=== PATIENT | male | born 1960 | race Caucasian/White ===

== ENCOUNTER 2018-06-30 15:51 | Inpatient (IN) ==
[2018-06-30 16:57] LABS: Hemoglobin 11.6 g/dL (12.9-16.9)
[2018-06-30 16:59] LABS: Basophils % 0.9 %; Eosinophils # 0.1 K/mcL (0.0-0.6); Eosinophils % 2.1 %; Hematocrit 33.1 % (37.5-50.1); Immature Platelets 7.3 % (1.1-6.1); Lymphocytes # 0.7 K/mcL (0.6-4.6); Lymphocytes % 21.4 %; Mean Corpuscular Hemoglobin 36.5 pg (28.0-33.3); Mean Corpuscular Volume 104.1 fL (83.0-100.0); Mean Platelet Volume 11.2 fL (9.4-12.4); Monocytes # 0.5 K/mcL (0.0-1.3); Monocytes % 14.4 %; Red Blood Count 3.18 M/mcL (4.19-5.50); Red Cell Distribution Width 14.2 % (11.5-14.5); Segmented Neutrophils % 61.2 %
[2018-06-30 17:00] LABS: Platelet Count 47 K/mcL (140-400)
[2018-06-30 17:04] LABS: INR 1.3; Prothrombin Time 15.1 Seconds (9.4-12.1)
[2018-06-30 17:07] LABS: Activated Partial Thrombo Time 38.2 Seconds (26.0-36.0)
[2018-06-30 17:25] LABS: Acetaminophen < 10 mcg/mL (10-20); Alanine Aminotransferase 20 Units/L (7-52); Albumin 3.2 g/dL (3.5-5.7); Albumin/Globulin Ratio 0.9 (1.1-2.2); Alkaline Phosphatase 187 Units/L (34-104); Aspartate Amino Transferase 77 Units/L (13-39); BUN/Creatinine Ratio 10 (6-26); Blood Urea Nitrogen 6 mg/dL (8-23); Calcium 8.8 mg/dL (8.6-10.3); Carbon Dioxide 24 mEq/L (23-29); Chloride 97 mEq/L (98-107); Ethanol 200 mg/dL (Less than 10); Globulin 3.6 g/dL (2.4-3.5); Glucose 71 mg/dL (70-105); Osmolality,Calculated 268 (280-300); Salicylate < 2.5 mg/dL (15.0-30.0); Sodium 131 mEq/L (136-145); Total Protein 6.8 g/dL (6.4-8.9); eGFR For Non-African Americans > 60 (> 60)
[2018-06-30 17:28] LABS: Platelet Estimate Decreased (Normal)
--- NOTE | 2018-06-30 17:39 | Emergency Department Note ---
Disposition Clinical Impression: Fall, Multiple contusions Disposition: Still a Patient Referrals: Deshaun Marc MD [Primary Care Provider] - Forms: ED Satisfaction Letter Fall HPI - General Chief Complaint: ED Fall Stated Complaint: fall Time Seen by Provider: 06/30/18 16:00 - History of Present Illness HPI Narrative: Patient is a 58-year-old Janota presents the wrist from a chief complaint of fall. Patient reports that he has prior history of thrombocytopenia and has been having frequent falls lately. He has fallen 3 times including a fall today where he fell in the yard and was unable to get up on his own. Patient has had multiple episodes of bruising spontaneously and was recently transferred to [facility] after he had had a fall. At that time the patient required platelet transfusion. Family reports the patient has also been having visual elucidations at home. There is concern the patient may not be able to care for himself at home in his current state. Pt Subjective Complaint: fall - Related Data Home Medications Medication Instructions Recorded Confirmed FLUoxetine HCl [PROzac] 10 mg PO DAILY 11/21/16 06/25/18 Atenolol [Tenormin] 25 mg PO DAILY 06/25/18 06/25/18 Fluticasone Propionate Nasal 2 spray IN BID 06/25/18 06/25/18 [Flonase] Loratadine [Claritin] 10 mg PO DAILY 06/25/18 06/25/18 Allergies Allergy/AdvReac Type Severity Reaction Status Date / Time No Known Allergies Allergy Verified 11/21/16 08:59 All systems ED: reviewed and negative except as stated. Fall PMH - Past Medical History Medical history: Reports: cirrhosis, hypertension, liver disease Surgical history: Reports: herniorrhaphy Psychiatric history: Reports: depression - Social History Smoking Status: Never smoker Alcohol use: Reports: heavy, recent Drug use: Reports: marijuana Physical Exam General: Conversant and pleasant interactive and nontoxic. Head: Normocephalic/atraumatic Eyes:PERRLA, EOMI, no conjunctivitis Nares: Without d/c. Ears: No erythema or d/c noted. Oralpharnyx: P&MMM noted, Neck: Supple, no JVD or HUMAN RESOURCE PROFESSIONAL noted. Cardovascular: regular rate and rhythm without murmur, brisk capillary refill, no peripheral edema. Lungs: Clear to ascultation bilaterally, non-labored Abd: Soft nontender, Non Distended, no guarding, no rebound. : Defered Extremities: moves all extremities equally there are multiple bruises on the extremities including hematoma present on the right forearm and there is also a skin tear present on the right forearm Neuro: AOx3, no obvious gross neuro deficit Psych: Normal Affect Derm: No rash noted - General General appearance: alert Course Course Narrative: Currently waiting on the imaging studies and the laboratory studies on the patient will be signing her care to the ongoing attending Vital Signs Temperature 98.2 F 06/30/18 15:57 Pulse Rate 68 06/30/18 15:57 Respiratory Rate 18 06/30/18 15:57 Blood Pressure 117/60 06/30/18 15:57 O2 Sat by Pulse Oximetry 94 06/30/18 15:57 Temperature 98.2 F 06/30/18 15:57 Pulse Rate 66 06/30/18 17:50 Respiratory Rate 21 06/30/18 17:50 Blood Pressure 124/61 06/30/18 17:50 O2 Sat by Pulse Oximetry 97 06/30/18 17:50 Oxygen Delivery Oxygen Delivery Room Air Fall - Lab Data Result diagrams: 06/30/18 16:46 06/30/18 16:46 Lab Results 06/30/18 06/30/18 06/30/18 Range/Units 16:46 16:46 16:46 WBC 3.3 L (4.3-11.1) K/mcL RBC 3.18 L (4.19-5.50) M/mcL Hgb 11.6 L (12.9-16.9) g/dL Hct 33.1 L (37.5-50.1) % MCV 104.1 H (83.0-100.0) fL MCH 36.5 H (28.0-33.3) pg MCHC 35.0 (31.6-35.5) g/dL RDW 14.2 (11.5-14.5) % Plt Count 47 L (140-400) K/mcL MPV 11.2 (9.4-12.4) fL Immature Gran % 0.0 (0-4) % Seg Neutrophils % 61.2 % Lymphocytes % 21.4 % Monocytes % 14.4 % Eosinophils % 2.1 % Basophils % 0.9 % Neutrophils # 2.0 (1.6-8.9) K/mcL Lymphocytes # 0.7 (0.6-4.6) K/mcL Monocytes # 0.5 (0.0-1.3) K/mcL Eosinophils # 0.1 (0.0-0.6) K/mcL Basophils # 0.0 (0.0-0.2) K/mcL Platelet Estimate Decreased L (Normal) Immature Plt Fraction 7.3 H (1.1-6.1) % PT 15.1 H (9.4-12.1) Seconds INR 1.3 APTT 38.2 H (26.0-36.0) Seconds Sodium 131 L (136-145) mEq/L Potassium 4.0 (3.5-5.1) mEq/L Chloride 97 L (98-107) mEq/L Carbon Dioxide 24 (23-29) mEq/L BUN 6 L (8-23) mg/dL Creatinine 0.62 L (0.70-1.30) mg/dL Est GFR ( Amer) > 60 (> 60) Est GFR (Non-Af Amer) > 60 (> 60) BUN/Creatinine Ratio 10 (6-26) Glucose 71 (70-105) mg/dL Calculated Osmolality 268 L (280-300) Calcium 8.8 (8.6-10.3) mg/dL Total Bilirubin 4.0 H (0.3-1.0) mg/dL AST 77 H (13-39) Units/L ALT 20 (7-52) Units/L Alkaline Phosphatase 187 H (34-104) Units/L Serum Total Protein 6.8 (6.4-8.9) g/dL Albumin 3.2 L (3.5-5.7) g/dL Globulin 3.6 H (2.4-3.5) g/dL Albumin/Globulin Ratio 0.9 L (1.1-2.2) Salicylates (15.0-30.0) mg/dL Acetaminophen (10-20) mcg/mL Ethyl Alcohol (Less than 10) mg/dL Blood Type Antibody Screen 06/30/18 06/30/18 Range/Units 16:46 16:46 WBC (4.3-11.1) K/mcL RBC (4.19-5.50) M/mcL Hgb (12.9-16.9) g/dL Hct (37.5-50.1) % MCV (83.0-100.0) fL MCH (28.0-33.3) pg MCHC (31.6-35.5) g/dL RDW (11.5-14.5) % Plt Count (140-400) K/mcL MPV (9.4-12.4) fL Immature Gran % (0-4) % Seg Neutrophils % % Lymphocytes % % Monocytes % % Eosinophils % % Basophils % % Neutrophils # (1.6-8.9) K/mcL Lymphocytes # (0.6-4.6) K/mcL Monocytes # (0.0-1.3) K/mcL Eosinophils # (0.0-0.6) K/mcL Basophils # (0.0-0.2) K/mcL Platelet Estimate (Normal) Immature Plt Fraction (1.1-6.1) % PT (9.4-12.1) Seconds INR APTT (26.0-36.0) Seconds Sodium (136-145) mEq/L Potassium (3.5-5.1) mEq/L Chloride (98-107) mEq/L Carbon Dioxide (23-29) mEq/L BUN (8-23) mg/dL Creatinine (0.70-1.30) mg/dL Est GFR ( Amer) (> 60) Est GFR (Non-Af Amer) (> 60) BUN/Creatinine Ratio (6-26) Glucose (70-105) mg/dL Calculated Osmolality (280-300) Calcium (8.6-10.3) mg/dL Total Bilirubin (0.3-1.0) mg/dL AST (13-39) Units/L ALT (7-52) Units/L Alkaline Phosphatase (34-104) Units/L Serum Total Protein (6.4-8.9) g/dL Albumin (3.5-5.7) g/dL Globulin (2.4-3.5) g/dL Albumin/Globulin Ratio (1.1-2.2) Salicylates < 2.5 L (15.0-30.0) mg/dL Acetaminophen < 10 L (10-20) mcg/mL Ethyl Alcohol 200 H (Less than 10) mg/dL Blood Type A NEGATIVE Antibody Screen NEGATIVE
--- NOTE | 2018-06-30 18:07 | Emergency Department Note ---
Disposition Clinical Impression: Multiple contusions, Alcohol abuse, Thrombocytopenia Fall Qualifiers: Encounter type: initial encounter Qualified Code(s): W19.XXXA - Unspecified fall, initial encounter Disposition: Admitted As Inpatient Condition: Fair Referrals: Deshaun Marc MD [Primary Care Provider] - Forms: ED Satisfaction Letter Time of Disposition: 18:32 General Adult HPI - General Chief complaint: ED Fall Stated complaint: fall Time Seen by Provider: 06/30/18 16:00 - History of Present Illness Pain Scale: 5 - Related Data Home Medications Medication Instructions Recorded Confirmed FLUoxetine HCl [PROzac] 10 mg PO DAILY 11/21/16 06/25/18 Atenolol [Tenormin] 25 mg PO DAILY 06/25/18 06/25/18 Fluticasone Propionate Nasal 2 spray IN BID 06/25/18 06/25/18 [Flonase] Loratadine [Claritin] 10 mg PO DAILY 06/25/18 06/25/18 Allergies Allergy/AdvReac Type Severity Reaction Status Date / Time No Known Allergies Allergy Verified 11/21/16 08:59 Past Medical History - Past Medical History Medical history: Reports: cirrhosis, hypertension, liver disease Surgical history: Reports: herniorrhaphy Psychiatric history: Reports: depression - Social History Smoking Status: Never smoker Smokeless Tobacco Status: No Alcohol use: Reports: heavy, recent Drug use: Reports: marijuana Physical Exam - General General appearance: alert Course Vital Signs Temperature 98.2 F 06/30/18 15:57 Pulse Rate 68 06/30/18 15:57 Respiratory Rate 18 06/30/18 15:57 Blood Pressure 117/60 06/30/18 15:57 O2 Sat by Pulse Oximetry 94 06/30/18 15:57 Temperature 98.2 F 06/30/18 15:57 Pulse Rate 66 06/30/18 17:50 Respiratory Rate 21 06/30/18 17:50 Blood Pressure 124/61 06/30/18 17:50 O2 Sat by Pulse Oximetry 97 06/30/18 17:50 Oxygen Delivery Oxygen Delivery Room Air Medical Decision Making - Lab Data Result diagrams: 06/30/18 16:46 06/30/18 16:46 Lab Results 06/30/18 06/30/18 06/30/18 Range/Units 16:46 16:46 16:46 WBC 3.3 L (4.3-11.1) K/mcL RBC 3.18 L (4.19-5.50) M/mcL Hgb 11.6 L (12.9-16.9) g/dL Hct 33.1 L (37.5-50.1) % MCV 104.1 H (83.0-100.0) fL MCH 36.5 H (28.0-33.3) pg MCHC 35.0 (31.6-35.5) g/dL RDW 14.2 (11.5-14.5) % Plt Count 47 L (140-400) K/mcL MPV 11.2 (9.4-12.4) fL Immature Gran % 0.0 (0-4) % Seg Neutrophils % 61.2 % Lymphocytes % 21.4 % Monocytes % 14.4 % Eosinophils % 2.1 % Basophils % 0.9 % Neutrophils # 2.0 (1.6-8.9) K/mcL Lymphocytes # 0.7 (0.6-4.6) K/mcL Monocytes # 0.5 (0.0-1.3) K/mcL Eosinophils # 0.1 (0.0-0.6) K/mcL Basophils # 0.0 (0.0-0.2) K/mcL Platelet Estimate Decreased L (Normal) Immature Plt Fraction 7.3 H (1.1-6.1) % PT 15.1 H (9.4-12.1) Seconds INR 1.3 APTT 38.2 H (26.0-36.0) Seconds Sodium 131 L (136-145) mEq/L Potassium 4.0 (3.5-5.1) mEq/L Chloride 97 L (98-107) mEq/L Carbon Dioxide 24 (23-29) mEq/L BUN 6 L (8-23) mg/dL Creatinine 0.62 L (0.70-1.30) mg/dL Est GFR ( Amer) > 60 (> 60) Est GFR (Non-Af Amer) > 60 (> 60) BUN/Creatinine Ratio 10 (6-26) Glucose 71 (70-105) mg/dL Calculated Osmolality 268 L (280-300) Calcium 8.8 (8.6-10.3) mg/dL Total Bilirubin 4.0 H (0.3-1.0) mg/dL AST 77 H (13-39) Units/L ALT 20 (7-52) Units/L Alkaline Phosphatase 187 H (34-104) Units/L Serum Total Protein 6.8 (6.4-8.9) g/dL Albumin 3.2 L (3.5-5.7) g/dL Globulin 3.6 H (2.4-3.5) g/dL Albumin/Globulin Ratio 0.9 L (1.1-2.2) Salicylates (15.0-30.0) mg/dL Acetaminophen (10-20) mcg/mL Ethyl Alcohol (Less than 10) mg/dL Blood Type Antibody Screen 06/30/18 06/30/18 Range/Units 16:46 16:46 WBC (4.3-11.1) K/mcL RBC (4.19-5.50) M/mcL Hgb (12.9-16.9) g/dL Hct (37.5-50.1) % MCV (83.0-100.0) fL MCH (28.0-33.3) pg MCHC (31.6-35.5) g/dL RDW (11.5-14.5) % Plt Count (140-400) K/mcL MPV (9.4-12.4) fL Immature Gran % (0-4) % Seg Neutrophils % % Lymphocytes % % Monocytes % % Eosinophils % % Basophils % % Neutrophils # (1.6-8.9) K/mcL Lymphocytes # (0.6-4.6) K/mcL Monocytes # (0.0-1.3) K/mcL Eosinophils # (0.0-0.6) K/mcL Basophils # (0.0-0.2) K/mcL Platelet Estimate (Normal) Immature Plt Fraction (1.1-6.1) % PT (9.4-12.1) Seconds INR APTT (26.0-36.0) Seconds Sodium (136-145) mEq/L Potassium (3.5-5.1) mEq/L Chloride (98-107) mEq/L Carbon Dioxide (23-29) mEq/L BUN (8-23) mg/dL Creatinine (0.70-1.30) mg/dL Est GFR ( Amer) (> 60) Est GFR (Non-Af Amer) (> 60) BUN/Creatinine Ratio (6-26) Glucose (70-105) mg/dL Calculated Osmolality (280-300) Calcium (8.6-10.3) mg/dL Total Bilirubin (0.3-1.0) mg/dL AST (13-39) Units/L ALT (7-52) Units/L Alkaline Phosphatase (34-104) Units/L Serum Total Protein (6.4-8.9) g/dL Albumin (3.5-5.7) g/dL Globulin (2.4-3.5) g/dL Albumin/Globulin Ratio (1.1-2.2) Salicylates < 2.5 L (15.0-30.0) mg/dL Acetaminophen < 10 L (10-20) mcg/mL Ethyl Alcohol 200 H (Less than 10) mg/dL Blood Type A NEGATIVE Antibody Screen NEGATIVE Attestation Statement - Attestation Attestation: Care of patient assumed from Dr. Nichols at 18:00 pending UA and UDS. patient with a h/o ETOH abuse and falls. Labs and transcribed report of imaging studies reviewed by me. 18:32: The patient appears in no acute distress on exam. imaging services director has evaluated the patient and recommended admission because he cannot take care of himself at home. The patient has been experiencing hallucinations. This could be organic versus substance abuse induced. I will allow the admitting team to determine if they want to process a mental health consultation but this could not be accomplished at the time of admission due to his serum alcohol level of 200 mg/dL
[2018-06-30 19:05] LABS: Bilirubin,Urine Negative (Negative); Blood,Urine Negative (Negative); Clarity,Urine Cloudy (Clear); Color,Urine Yellow (Yellow); Glucose,Urine (UA) Normal (Normal); Ketones,Urine Trace mg/dL (Negative); Leukocyte Esterase,Urine Negative (Negative); Nitrite,Urine Negative (Negative); PH,Urine 6.5 pH Units (5.0-8.0); Protein,Urine Negative (Neg-Trace); Specific Gravity,Urine 1.011 (1.010-1.025); Urobilinogen,Urine Normal (Normal)
[2018-06-30 19:09] LABS: Bacteria,Urine None Seen per hpf (None-Few); Hyaline Casts,Urine None Seen per lpf (None-Few); RBC,Urine 0-3 per hpf (0-3); Squamous Epithelial Cell,Urine Few per lpf (None-Few); WBC,Urine 0-3 per hpf (0-3)
[2018-06-30 19:21] LABS: Amphetamine Screen,Urine Negative ng/mL (Cutoff=1000); Barbiturate Screen,Urine Negative ng/mL (Cutoff=200); Benzodiazepines Screen,Urine Negative ng/mL (Cutoff=200); Cannabinoid Screen,Urine Positive ng/mL (Cutoff = 50); Cocaine Screen,Urine Negative ng/mL (Cutoff= 300); Opiate Screen,Urine Negative ng/mL (Cutoff=300); Phencyclidine Screen,Urine Negative ng/mL (Cutoff=25)
[2018-06-30 19:35] LABS: Calcium Oxalate Crystals,Urine Present
[2018-06-30] MEDS ORDERED: Naloxone 0.4 MG/ML INJ IVP PRN (19:54)
--- NOTE | 2018-06-30 20:13 | Internal Med History&Physical ---
Date of Encounter: 07/01/18 Time of Encounter: 20:13 Internal Medicine - H&P: HPI Chief complaint: Fall History of present illness: Mr. Mathews is a 58 year old male with a past medical history of alcohol use, liver cirrhosis and depression who presents to the ED with complaints of fall. Of note patient was recently seen on June 25 for similar presentation and was subsequently transferred to [facility] for further evaluation of head trauma secondary to fall at the time in the setting of thrombocytopenia. Patient states he was subsequently discharged the following day after CAT scan revealed no evidence of intracranial hemorrhage. Patient was also given a platelet transfusion and also obtained a carotid ultrasound which his brother at bedside states showed greater than 75% stenosis. Patient presents today again after 3 episodes of fall one of which she states was mechanical; the second 2 he believes he lost consciousness. Patient has been reporting increased frequency of falls, memory impairment and visual hallucinations. Patient does drink heavily and has been doing so for the past 39 years. He states he drinks about 12 beers a day. His last drink was around 10 AM after having a 6 pack patient states that earlier this morning he slipped as he was walking out to his porch. He then reports 2 other episodes of falls associated loss of consciousness in which she woke up and states that he probably blacked out. Patient was brought into the ED by his brother not only due to his falls but evidence of a large bruise on his right forearm. X-ray shows a prominent forearm hematoma. Patient again found to be thrombocytopenic with a platelet count of 47. Remainder of imaging workup shows no other evidence of bleed. Patient's brother states that he has been having visualizations including swatting at flies and seeing things that are not there. Denies any fever, chills, chest pain, shortness of breath. Does endorse to remittent episodes of diarrhea. No reports of melena or hematochezia. On arrival patient was found to be afebrile, normotensive satting at 96% on room air. Labs notable for leukopenia which appears to be chronic, th rombocytopenia, mild hyponatremia and a total bilirubin of 4.0. INR was 1.3. Alcohol level noted to be over 200. Toxicology also notable for marijuana. Patient does not endorse occasional marijuana use. CT scan of the head showed no acute intracranial abnormality and chest x-ray was also normal. Past Med Surg Social Fam HX - Past Medical History Medical history: cirrhosis, hypertension, liver disease Additional medical history: alcoholic cirrhosis Psychiatric history: depression - Past Surgical History Surgical History: herniorrhaphy Additional surgical history: b/l inguinal hernia repairs. - Social History Smoking Status: Never smoker Smokeless Tobacco Status: No Alcohol use: heavy, recent Drug use: marijuana - Family History Mother Adopted: [place]: Angelica Age: 85 Family Member Ethnicity: Non- Living Status: Still Living Hx Family Cancer: Yes - Additional Family History Additional family history: Family history of coronary artery disease. Internal Medicine - H&P: Meds FLUoxetine HCl [PROzac] 10 mg PO DAILY 11/21/16 [History] Atenolol [Tenormin] 25 mg PO DAILY 06/25/18 [History] Fluticasone Propionate Nasal [Flonase] 2 spray IN BID 06/25/18 [History] Loratadine [Claritin] 10 mg PO DAILY 06/25/18 [History] HYDROcodone/Acet 5/325 mg [[place] 5-325 mg] 1 tab PO 1-3XD PRN 06/30/18 [History] Naltrexone HCl 25 mg PO DAILY 07/01/18 [History] Allergy/AdvReac Type Severity Reaction Status Date / Time No Known Allergies Allergy Verified 11/21/16 08:59 All Systems PM: A 10-system review of systems was performed and is negative for pertinent findings except as documented above in the HPI. - Constitutional Constitutional: no chills, no fever(s), no night sweats - EENT Eyes: no change in vision, no discharge, no pain, no photophobia Ears: no ear discharge, no ear pain, no tinnitus Nose, mouth and throat: no dysphagia, no nasal discharge, no neck pain, no sore throat - Cardiovascular Cardiovascular ROS IM: no chest pain, no diaphoresis, no dyspnea, no lightheadedness, no palpitations, no syncope - Respiratory Respiratory: no cough, no dyspnea, no wheezing, no excessive phlegm production - Gastrointestinal Gastrointestinal: no abdominal pain, no diarrhea, no hematemesis, no hematochezia, no melena, no nausea, no vomiting - Musculoskeletal Musculoskeletal ROS IM: no numbness, no tingling - Integumentary Integumentary IM: no rash, no unusual bruising - Neurological Neurological ROS: no confusion, no convulsions, no focal weakness, no numbness, no tingling, no tremor(s) - Hematologic/Lymphatic Hematologic/Lymphatic: no easy bruising - Constitutional Vitals: Temp Pulse Resp BP Pulse Ox 98.2 F 72 20 138/63 96 06/30/18 15:57 06/30/18 20:04 06/30/18 20:04 06/30/18 20:04 06/30/18 20:04 Exam: General: Alert and oriented 3 Skin: Large regions of ecchymosis on the left forearm. HEENT:EOM, pupils equal, round and reactive. Mild scleral icterus Cardiovascular:Normal S1 & S2, no rubs, murmurs or gallops. No JVD. Pulse regular. Lungs:Normal breath sounds, no wheezes or crackles. Abdomen:Soft, non-tender, no rigidity. Extremities: Prominent right mid forearm mass noted. Pulses intact. Neurological:Normal cognition and motor skills. Mild upper extremity tremors. Muscle strength 4 out of 5 in the lower extremities bilaterally. Pulses:Carotid and radial pulses normal +2. Rest of the physical exam is non contributory Internal Med - H&P Results - Labs CBC & Chem 7: 07/01/18 07:01 07/01/18 07:01 Labs: Short CBC 06/30/18 Range/Units 16:46 WBC 3.3 L (4.3-11.1) K/mcL Hgb 11.6 L (12.9-16.9) g/dL Hct 33.1 L (37.5-50.1) % Plt Count 47 L (140-400) K/mcL Neutrophils # 2.0 (1.6-8.9) K/mcL BMP 06/30/18 16:46 Sodium 131 L Potassium 4.0 Chloride 97 L Carbon Dioxide 24 BUN 6 L Creatinine 0.62 L Glucose 71 Calcium 8.8 Liver Function 06/30/18 Range/Units 16:46 Total Bilirubin 4.0 H (0.3-1.0) mg/dL AST 77 H (13-39) Units/L ALT 20 (7-52) Units/L Alkaline Phosphatase 187 H (34-104) Units/L Albumin 3.2 L (3.5-5.7) g/dL Urine 06/30/18 Range/Units 18:50 Urine Color Yellow (Yellow) Urine Clarity Cloudy A (Clear) Urine pH 6.5 (5.0-8.0) pH Units Ur Specific [place] 1.011 (1.010-1.025) Urine Protein Negative (Neg-Trace) mg/dL Urine Glucose (UA) Normal (Normal) mg/dL - Impressions ITS Impressions Cervical Spine CT 06/30/18 16:13 IMPRESSION: No acute intracranial abnormality. No evidence acute fracture or traumatic malalignment of the cervical spine. D/ / Maximilian Zheng / Maximilian Zheng Interpreting Provider: Maximilian Zheng Chest X-Ray 06/30/18 16:13 IMPRESSION: No evidence for acute cardiopulmonary process. Previously noted left lateral 4th and 5th rib fractures on prior exam 06/25/2018 are not as well demonstrated currently but appear grossly stable in alignment. D/ / 06/30/2018 16:43:22 Erasto Matthews MD / cathy Interpreting Provider: Erasto Matthews MD Head CT 06/30/18 16:13 IMPRESSION: No acute intracranial abnormality. No evidence acute fracture or traumatic malalignment of the cervical spine. D/ / Maximilian Zheng / Maximilian Zheng Interpreting Provider: Maximilian Zheng Elbow X-Ray 06/30/18 16:14 IMPRESSION: Prominent soft tissue density dorsum of the proximal right forearm presumably reflecting hematoma/contusion. Probable old healed radial head fracture. Correlate with clinical history. Acute radial head fracture is a consideration, however the absence of joint effusion makes this unlikely. Peripheral vascular disease. Follow-up imaging recommended if pain persists or worsens following conservative management. D/ / Romeo Ogden / Romeo Ogden Interpreting Provider: Romeo Ogden - Assessment and Plan (1) Alcohol abuse Current Visit: Yes Status: Acute Assessment and plan: History of chronic alcohol abuse reporting drinking on average a 12 pack of beer daily for the past 39 years. Patient has a history of liver cirrhosis likely secondary to alcohol use. Patient states he has been counseled on alcohol cessation multiple times. Does not report any history of alcohol withdrawal seizures. Does report poor appetite. -Fluid support including banana bag 2 -Check electrolytes and replete as needed -CIWA protocol with Ativan as needed -volunteer services coordinator consult (2) Traumatic hematoma of right forearm Current Visit: Yes Status: Acute Qualifiers: (3) Fall Current Visit: Yes Status: Acute Assessment and plan: Patient presents with history of increased frequency of falls with reported history of syncopal episodes, 2 of which occurred today in the setting of alcohol abuse. Patient was evaluated at [facility] on June 25 for the same. Patient's brother states that he got a carotid ultrasound showing greater than 75% stenosis in one of his carotid arteries. No reports that an echo was obtained. No reports of chest pain, palpitations or presyncopal symptoms prior to any of these episodes. There does seem to be reports of orthostatic hypotension. No focal deficits appreciated. Neurologically intact. CT scan of the head was unremarkable. -Continue fluids -Telemetry -Check orthostatics -Patient likely obtained echocardiogram workup at [facility]. Obtain record s from [facility] including reported carotid ultrasound. -We will obtain MRI Qualifiers: Encounter type: initial encounter Qualified Code(s): W19.XXXA - Unspecified fall, initial encounter (4) Thrombocytopenia Current Visit: Yes Status: Acute Assessment and plan: Thrombocytopenia with a platelet count of 47. Last platelet count on June 25 was 40. Patient reports receiving a platelet transfusion at [facility] earlier this month. Likely secondary to liver cirrhosis. Patient does have evidence of hematoma on the right forearm. We will monitor now for any further evidence of bleed and transfuse as needed. (5) Multiple contusions Current Visit: Yes Status: Acute (6) Forearm abrasion Current Visit: No Status: Acute Qualifiers: Encounter type: initial encounter Laterality: left Qualified Code(s): S50.812A - Abrasion of left forearm, initial encounter (7) Hyponatremia Current Visit: Yes Status: Acute Assessment and plan: Mild hyponatremia 131. Likely secondary to beer per morenita in the setting of chronic alcohol use and poor by mouth appetite. We will continue with fluids and monitor. (8) DVT prophylaxis Current Visit: Yes Status: Acute Assessment and plan: Pneumatic compression devices (9) Hyperbilirubinemia Current Visit: Yes Status: Acute Assessment and plan: Hyperbilirubinemia in the setting of liver cirrhosis. Amylase, lipase normal. Follow-up GI recommendations. - Time Spent With Patient Total time spent is greater than 50% in coordination of care (as documented) at patient's floor/unit and/or counseling patient:
[2018-06-30 20:40] LABS: Amylase 29 Units/L (29-103); Creatine Kinase 401 Units/L (30-223); Lipase 12 Units/L (11-82)
[2018-06-30 20:52] LABS: Thyroid Stimulating Hormone 3.782 mcIU/mL (0.340-5.600)
[2018-06-30] MEDS: Fluticasone Propionate Nasal 50 MCG/SPRAY BOTTLE NS SCH (23:49)
[2018-07-01] MEDS: FLUoxetine HCl 10 MG CAPSULE PO SCH (07:51)
[2018-07-01] MEDS: Loratadine 10 MG TABLET PO SCH (07:51)
[2018-07-01] MEDS: *HR* LORazepam 2 MG/ML VIAL IVP PRN ×3 (07:51→10:47)
[2018-07-01 08:04] LABS: INR 1.3; Prothrombin Time 14.2 Seconds (9.4-12.1)
[2018-07-01 08:06] LABS: Activated Partial Thrombo Time 35.8 Seconds (26.0-36.0)
[2018-07-01 08:07] LABS: Basophils % 0.5 %; Eosinophils % 0.5 %; Hematocrit 35.6 % (37.5-50.1); Hemoglobin 12.3 g/dL (12.9-16.9); Immature Platelets 8.2 % (1.1-6.1); Lymphocytes # 0.7 K/mcL (0.6-4.6); Lymphocytes % 17.4 %; Mean Corpuscular HGB Conc 34.6 g/dL (31.6-35.5); Mean Corpuscular Hemoglobin 35.9 pg (28.0-33.3); Mean Corpuscular Volume 103.8 fL (83.0-100.0); Mean Platelet Volume 11.3 fL (9.4-12.4); Monocytes # 0.5 K/mcL (0.0-1.3); Monocytes % 12.3 %; Neutrophils # 2.8 K/mcL (1.6-8.9); Red Blood Count 3.43 M/mcL (4.19-5.50); Segmented Neutrophils % 69.3 %
[2018-07-01 08:18] LABS: Platelet Count 56 K/mcL (140-400)
[2018-07-01 08:28] LABS: Alanine Aminotransferase 24 Units/L (7-52); Albumin 3.4 g/dL (3.5-5.7); Albumin/Globulin Ratio 0.9 (1.1-2.2); Alkaline Phosphatase 203 Units/L (34-104); Aspartate Amino Transferase 80 Units/L (13-39); BUN/Creatinine Ratio 12 (6-26); Bilirubin,Total 4.7 mg/dL (0.3-1.0); Blood Urea Nitrogen 8 mg/dL (8-23); Carbon Dioxide 22 mEq/L (23-29); Chloride 99 mEq/L (98-107); Globulin 3.9 g/dL (2.4-3.5); Glucose 81 mg/dL (70-105); Magnesium 1.9 mg/dL (1.6-2.6); Osmolality,Calculated 279 (280-300); Phosphorous 3.3 mg/dL (2.7-4.5); Potassium 3.9 mEq/L (3.5-5.1); Sodium 136 mEq/L (136-145); Total Protein 7.3 g/dL (6.4-8.9); eGFR For Non-African Americans > 60 (> 60)
--- NOTE | 2018-07-01 09:01 | AcuteCare Surgery Consult Note ---
<Juliann Dc N - Last Filed: 07/01/18 08:58> Date of Encounter: 07/01/18 Time of Encounter: 06:50 Assessment and Plan (1) Fall Current Visit: Yes Status: Acute Fall with x-ray imaging findings of soft tissue density of the proximal right forearm. On examination patient has notable swelling of the right forearm, but sensation of the distal extremity is intact. He has full range of motion of the wrist and fingers. Pulses are intact and there is good capillary refill. Soft tissue swelling may represent a contusion versus hematoma however surgical intervention at this time is not warranted. Recommend elevation of the right upper extremity and using an Russell wrap to dress the area. At this time acute care surgery will sign off, please reconsult with any questions. 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 On presentation platelet count was 47. No surgical intervention warranted at this time, however patient would be high risk for bleeding if he were to require surgery. History of Present Illness Consult date: 07/01/18 History of present illness: Patient is a 58-year-old male with a past medical history of chronic alcoholism, liver cirrhosis, grade 1 esophageal varices, and thrombocytopenia who presented to the emergency department today after several multiple falls. Patient states that he was walking down steps when he believes that he fell in lost consciousness and cannot recall the subsequent events. He complains of hitting his head and his right arm. Patient was reportedly inebriated on presentation to the emergency department which was confirmed by an ethanol level of 200. On presentation imaging studies including head and C-spine CT, chest x-ray, and elbow x-ray were obtained. Imaging was negative for acute fractures or intracranial bleeds, the right elbow x-rays revealed a soft tissue density of the proximal right forearm presumably reflecting hematoma versus contusion and an incidental finding of an old healed radial head fracture. Acute care surgery consultation was placed to evaluate for possible traumatic hematoma of the right forearm. This morning the patient is resting comfortably in bed, his right arm was wrapped in Kerlix. On examination there is notable swelling of the right forearm, however patient has adequate sensation of all of his fingers, distal pulses are present, capillary refill is normal, and range of motion of his wrist and fingers is intact. Past Med Surg Social Fam HX - Past Medical History Medical history: cirrhosis, hypertension, liver disease Additional medical history: alcoholic cirrhosis Psychiatric history: depression - Past Surgical History Surgical History: herniorrhaphy Additional surgical history: b/l inguinal hernia repairs. - Social History Smoking Status: Never smoker Smokeless Tobacco Status: No Alcohol use: heavy, recent Drug use: marijuana - Family History Mother Adopted: [place]: Angelica Age: 85 Family Member Ethnicity: Non- Living Status: Still Living Hx Family Cancer: Yes Medications and Allergies FLUoxetine HCl [PROzac] 10 mg PO DAILY 11/21/16 [History] Atenolol [Tenormin] 25 mg PO DAILY 06/25/18 [History] Fluticasone Propionate Nasal [Flonase] 2 spray IN BID 06/25/18 [History] Loratadine [Claritin] 10 mg PO DAILY 06/25/18 [History] HYDROcodone/Acet 5/325 mg [Underwood 5-325 mg] 1 tab PO 1-3XD PRN 06/30/18 [History] Naltrexone HCl 25 mg PO DAILY 07/01/18 [History] Allergy/AdvReac Type Severity Reaction Status Date / Time No Known Allergies Allergy Verified 11/21/16 08:59 Review of Systems All systems PM: The remainder of the systems were reviewed and are negative - Constitutional frequent falls, headache(s) - Cardiovascular no chest pain - Respiratory no dyspnea - Gastrointestinal no abdominal pain, no diarrhea, no hematemesis, no vomiting - Musculoskeletal abnormal gait, muscle weakness - Integumentary swelling - Neurological frequent falls, headache(s), memory loss - Hematologic/Lymphatic easy bruising General Surgery Exam Initial Vital Signs Temp Pulse Resp BP Pulse Ox 98.2 F 68 18 117/60 94 06/30/18 15:57 06/30/18 15:57 06/30/18 15:57 06/30/18 15:57 06/30/18 15:57 - General physical appearance no distress - Eyes PERRL, normal ocular movement - ENT normal pinna, normal nares - Neck trachea midline, no venous distension - Respiratory normal expansion, normal respiratory effort, clear to auscultation - Cardiovascular Cardiovascular exam: Present: RRR. Absent: murmurs - Abdomen Abdomen general surgery: Present: soft, non tender. Absent: guarding, rigid - Integumentary Integumentary general surgery: Present: other (Ecchymosis present on extremities, there is swelling at the mid right forearm on the right that is mildly tender to palpation. Pulses intact in the right upper extremity with good capillary refill. He has range of motion of his wrist and all fingers. Sensation intact.) - Neurologic Present: CN 2-12 grossly intact, normal sensation - Musculoskeletal Present: normal gait, normal posture - Psychiatric Psychiatric general surgery: Present: A&Ox3, appropriate Exam Initial Vital Signs Temp Pulse Resp BP Pulse Ox 98.2 F 68 18 117/60 94 06/30/18 15:57 06/30/18 15:57 06/30/18 15:57 06/30/18 15:57 06/30/18 15:57 Results - Labs 07/01/18 07:01 07/01/18 07:01 Abnormal lab results WBC 4.0 K/mcL (4.3-11.1) L 07/01/18 07:01 RBC 3.43 M/mcL (4.19-5.50) L 07/01/18 07:01 Hgb 12.3 g/dL (12.9-16.9) L 07/01/18 07:01 Hct 35.6 % (37.5-50.1) L 07/01/18 07:01 MCV 103.8 fL (83.0-100.0) H 07/01/18 07:01 MCH 35.9 pg (28.0-33.3) H 07/01/18 07:01 Plt Count 56 K/mcL (140-400) L 07/01/18 07:01 Decreased (Normal) L 06/30/18 16:46 Immature Plt Fraction 8.2 % (1.1-6.1) H 07/01/18 07:01 PT 14.2 Seconds (9.4-12.1) H 07/01/18 07:01 APTT 38.2 Seconds (26.0-36.0) H 06/30/18 16:46 Sodium 131 mEq/L (136-145) L 06/30/18 16:46 Chloride 97 mEq/L (98-107) L 06/30/18 16:46 Carbon Dioxide 22 mEq/L (23-29) L 07/01/18 07:01 BUN 6 mg/dL (8-23) L 06/30/18 16:46 0.65 mg/dL (0.70-1.30) L 07/01/18 07:01 279 (280-300) L 07/01/18 07:01 4.7 mg/dL (0.3-1.0) H 07/01/18 07:01 AST 80 Units/L (13-39) H 07/01/18 07:01 203 Units/L (34-104) H 07/01/18 07:01 401 Units/L (30-223) H 06/30/18 16:46 3.4 g/dL (3.5-5.7) L 07/01/18 07:01 3.9 g/dL (2.4-3.5) H 07/01/18 07:01 0.9 (1.1-2.2) L 07/01/18 07:01 Cloudy (Clear) A 06/30/18 18:50 Trace mg/dL (Negative) H 06/30/18 18:50 Salicylates < 2.5 mg/dL (15.0-30.0) L 06/30/18 16:46 Acetaminophen < 10 mcg/mL (10-20) L 06/30/18 16:46 U Marijuana (THC) Screen Positive ng/mL (Cutoff = 50) H 06/30/18 18:50 Ethyl Alcohol 200 mg/dL (Less than 10) H 06/30/18 16:46 Diabetes panel 06/30/18 07/01/18 Range/Units 16:46 07:01 Sodium 131 L 136 (136-145) mEq/L Potassium 4.0 3.9 (3.5-5.1) mEq/L Chloride 97 L 99 (98-107) mEq/L Carbon Dioxide 24 22 L (23-29) mEq/L BUN 6 L 8 (8-23) mg/dL Creatinine 0.62 L 0.65 L (0.70-1.30) mg/dL Glucose 71 81 (70-105) mg/dL Calcium 8.8 9.0 (8.6-10.3) mg/dL AST 77 H 80 H (13-39) Units/L ALT 20 24 (7-52) Units/L Alkaline Phosphatase 187 H 203 H (34-104) Units/L Albumin 3.2 L 3.4 L (3.5-5.7) g/dL Thyroid panel 06/30/18 Range/Units 16:46 TSH 3.782 (0.340-5.600) mcIU/mL Calcium panel 06/30/18 07/01/18 Range/Units 16:46 07:01 Calcium 8.8 9.0 (8.6-10.3) mg/dL Phosphorus 3.3 (2.7-4.5) mg/dL Albumin 3.2 L 3.4 L (3.5-5.7) g/dL Pituitary panel 06/30/18 07/01/18 Range/Units 16:46 07:01 Sodium 131 L 136 (136-145) mEq/L Potassium 4.0 3.9 (3.5-5.1) mEq/L Chloride 97 L 99 (98-107) mEq/L Carbon Dioxide 24 22 L (23-29) mEq/L BUN 6 L 8 (8-23) mg/dL Creatinine 0.62 L 0.65 L (0.70-1.30) mg/dL Glucose 71 81 (70-105) mg/dL Calcium 8.8 9.0 (8.6-10.3) mg/dL TSH 3.782 (0.340-5.600) mcIU/mL Adrenal panel 06/30/18 07/01/18 Range/Units 16:46 07:01 Sodium 131 L 136 (136-145) mEq/L Potassium 4.0 3.9 (3.5-5.1) mEq/L Chloride 97 L 99 (98-107) mEq/L Carbon Dioxide 24 22 L (23-29) mEq/L BUN 6 L 8 (8-23) mg/dL Creatinine 0.62 L 0.65 L (0.70-1.30) mg/dL Glucose 71 81 (70-105) mg/dL Calcium 8.8 9.0 (8.6-10.3) mg/dL Total Bilirubin 4.0 H 4.7 H (0.3-1.0) mg/dL AST 77 H 80 H (13-39) Units/L ALT 20 24 (7-52) Units/L Alkaline Phosphatase 187 H 203 H (34-104) Units/L Albumin 3.2 L 3.4 L (3.5-5.7) g/dL All other labs normal. Consult Discharge Plan - Plan Referrals: Deshaun Marc MD [Primary Care Provider] - <JeffYohan Braun - Last Filed: 07/01/18 16:30> Date of Encounter: 07/01/18 Review of Systems All systems PM: The remainder of the systems were reviewed and are negative General Surgery Exam Initial Vital Signs Temp Pulse Resp BP Pulse Ox 98.2 F 68 18 117/60 94 06/30/18 15:57 06/30/18 15:57 06/30/18 15:57 06/30/18 15:57 06/30/18 15:57 Exam Initial Vital Signs Temp Pulse Resp BP Pulse Ox 98.2 F 68 18 117/60 94 06/30/18 15:57 06/30/18 15:57 06/30/18 15:57 06/30/18 15:57 06/30/18 15:57 Results - Labs 07/01/18 07:01 07/01/18 07:01 Abnormal lab results WBC 4.0 K/mcL (4.3-11.1) L 07/01/18 07:01 RBC 3.43 M/mcL (4.19-5.50) L 07/01/18 07:01 Hgb 12.3 g/dL (12.9-16.9) L 07/01/18 07:01 Hct 35.6 % (37.5-50.1) L 07/01/18 07:01 MCV 103.8 fL (83.0-100.0) H 07/01/18 07:01 MCH 35.9 pg (28.0-33.3) H 07/01/18 07:01 Plt Count 56 K/mcL (140-400) L 07/01/18 07:01 Decreased (Normal) L 06/30/18 16:46 Immature Plt Fraction 8.2 % (1.1-6.1) H 07/01/18 07:01 PT 14.2 Seconds (9.4-12.1) H 07/01/18 07:01 APTT 38.2 Seconds (26.0-36.0) H 06/30/18 16:46 Sodium 131 mEq/L (136-145) L 06/30/18 16:46 Chloride 97 mEq/L (98-107) L 06/30/18 16:46 Carbon Dioxide 22 mEq/L (23-29) L 07/01/18 07:01 BUN 6 mg/dL (8-23) L 06/30/18 16:46 0.65 mg/dL (0.70-1.30) L 07/01/18 07:01 279 (280-300) L 07/01/18 07:01 4.7 mg/dL (0.3-1.0) H 07/01/18 07:01 AST 80 Units/L (13-39) H 07/01/18 07:01 203 Units/L (34-104) H 07/01/18 07:01 401 Units/L (30-223) H 06/30/18 16:46 3.4 g/dL (3.5-5.7) L 07/01/18 07:01 3.9 g/dL (2.4-3.5) H 07/01/18 07:01 0.9 (1.1-2.2) L 07/01/18 07:01 Cloudy (Clear) A 06/30/18 18:50 Trace mg/dL (Negative) H 06/30/18 18:50 Salicylates < 2.5 mg/dL (15.0-30.0) L 06/30/18 16:46 Acetaminophen < 10 mcg/mL (10-20) L 06/30/18 16:46 U Marijuana (THC) Screen Positive ng/mL (Cutoff = 50) H 06/30/18 18:50 Ethyl Alcohol 200 mg/dL (Less than 10) H 06/30/18 16:46 Diabetes panel 06/30/18 07/01/18 Range/Units 16:46 07:01 Sodium 131 L 136 (136-145) mEq/L Potassium 4.0 3.9 (3.5-5.1) mEq/L Chloride 97 L 99 (98-107) mEq/L Carbon Dioxide 24 22 L (23-29) mEq/L BUN 6 L 8 (8-23) mg/dL Creatinine 0.62 L 0.65 L (0.70-1.30) mg/dL Glucose 71 81 (70-105) mg/dL Calcium 8.8 9.0 (8.6-10.3) mg/dL AST 77 H 80 H (13-39) Units/L ALT 20 24 (7-52) Units/L Alkaline Phosphatase 187 H 203 H (34-104) Units/L Albumin 3.2 L 3.4 L (3.5-5.7) g/dL Thyroid panel 06/30/18 Range/Units 16:46 TSH 3.782 (0.340-5.600) mcIU/mL Calcium panel 06/30/18 07/01/18 Range/Units 16:46 07:01 Calcium 8.8 9.0 (8.6-10.3) mg/dL Phosphorus 3.3 (2.7-4.5) mg/dL Albumin 3.2 L 3.4 L (3.5-5.7) g/dL Pituitary panel 06/30/18 07/01/18 Range/Units 16:46 07:01 Sodium 131 L 136 (136-145) mEq/L Potassium 4.0 3.9 (3.5-5.1) mEq/L Chloride 97 L 99 (98-107) mEq/L Carbon Dioxide 24 22 L (23-29) mEq/L BUN 6 L 8 (8-23) mg/dL Creatinine 0.62 L 0.65 L (0.70-1.30) mg/dL Glucose 71 81 (70-105) mg/dL Calcium 8.8 9.0 (8.6-10.3) mg/dL TSH 3.782 (0.340-5.600) mcIU/mL Adrenal panel 06/30/18 07/01/18 Range/Units 16:46 07:01 Sodium 131 L 136 (136-145) mEq/L Potassium 4.0 3.9 (3.5-5.1) mEq/L Chloride 97 L 99 (98-107) mEq/L Carbon Dioxide 24 22 L (23-29) mEq/L BUN 6 L 8 (8-23) mg/dL Creatinine 0.62 L 0.65 L (0.70-1.30) mg/dL Glucose 71 81 (70-105) mg/dL Calcium 8.8 9.0 (8.6-10.3) mg/dL Total Bilirubin 4.0 H 4.7 H (0.3-1.0) mg/dL AST 77 H 80 H (13-39) Units/L ALT 20 24 (7-52) Units/L Alkaline Phosphatase 187 H 203 H (34-104) Units/L Albumin 3.2 L 3.4 L (3.5-5.7) g/dL All other labs normal. - Attending Attestation I examined this patient and my medical decision-making was reviewed with the Resident Physician. I agree with the documented findings, disposition and treatment plan as described except to the extent set forth below. I reviewed the above assessment and evaluation with resident and agree with the overall plan. Noted patient's history of a cold abuse, cirrhosis, cytopenia has sustained a fall and subsequently has a hematoma in his right forearm. He has no loss of sensation although he does have some tenderness in the area of the hematoma. No overlying erythema is noted although there is ecchymosis c onsistent with his thrombocytopenia. Agree with recommendation of his any extremity and applying an Russell wrap to help decrease swelling. No surgical intervention is necessary. We will sign off, thank very much.
[2018-07-01] MEDS ORDERED: *HR* LORazepam 2 MG/ML VIAL IVP ONE (09:19)
[2018-07-01] MEDS: Dexmedetomidine HCl 400 MCG/100 ML MLS IVC SCH ×2 (09:48→14:52)
[2018-07-01] MEDS: Fluticasone Propionate Nasal 50 MCG/SPRAY BOTTLE NS SCH ×2 (10:47→23:01)
--- NOTE | 2018-07-01 13:56 | Gastroenterology Consult Note ---
<SyCorby infante Barbara - Last Filed: 07/01/18 13:53> Date of Encounter: 07/01/18 Time of Encounter: 11:40 - Assessment and plan (1) Cirrhosis Current Visit: Yes Status: Acute Assessment and plan: MELD-NA 20, Child-Romeo class B, DF 17.8. Recommend 2-4 BMs daily, use Lactulose PRN. Check AFP and RUQ US to rule out HCC. Lifestyle Changes: 1. Total abstinence from alcohol including social drinking. 2. No smoking. 3. Gradual loss of weight. 4. Drink at least 3 cups of coffee due to its antioxidant effects in the liver, it reduces risk of HCC and advance fibrosis. 5. If needed, use less than 2 g/day of Tylenol (in divided doses). 6. Vaccination for Hep A, B, Pneumococcus if not already received and yearly influenza vaccination by PCP. 7. Avoid NSAIDS as can cause kidney damage. 8. Avoid benzodiazepines and other sedatives such as anti-histamines, narcotics etc. as can cause encephalopathy or confusion. 9. Take a late carbohydrate meal supplement as it reduces glucose production from protein breakdown and thus improves nutrition. 10. In cirrhosis, statins are safe to use and also improve portal hypertension and decrease risk of HCC. 11. Screening: Hepatocellular cancer screening: US of liver and AFP every 6 months Qualifiers: Hepatic cirrhosis type: alcoholic cirrhosis Ascites presence: unspecified Qualified Code(s): K70.30 - Alcoholic cirrhosis of liver without ascites (2) Alcohol abuse Current Visit: Yes Status: Acute Assessment and plan: Avoid all forms of alcohol. (3) Thrombocytopenia Current Visit: Yes Status: Acute Assessment and plan: Secondary to cirrhosis. - Time Spent With Patient Total time spent is greater than 50% in coordination of care (as documented) at patient's floor/unit and/or counseling patient: GI History of Present Illness - Data of Consult Patient: known to practice within the last 3 years Consult date: 07/01/18 Requesting Physician: Edwin Khan - Consult Narrative Reason for consult: Cirrhosis History of present illness: Mr. Mathews is a 58 year old male with PMHx of alcohol abuse, cirrhosis, TCP, esophageal varices, HTN who presented to the ED with complaints of 3 episodes of falling. History obtained from chart review as patient sedated on Precedex. Patient consuming 12-19 beers per day. He has been falling more frequently recently. No reports of melena or hematochezia. We were consulted to evaluate his cirrhosis. Overnight patient started to have tremors, increases anxiety, hallucinations, and combative. He was started on Precedex and transferred to the ICU. Procedures: EGD 06/04/2018 Dr. Augustine: Grade 1 varices, esophageal stenosis. Colonoscopy 09/04/2017 Dr. Augustine: Poor prep 10 mm and 5 mm polyp not removed due to thrombocytopenia, internal hemorrhoids. EGD 09/04/2017 Dr. Augustine: Grade 2 esophageal varices, portal hypertensive gastropathy, esophageal stenosis. EGD 11/21/2016 Dr. Augustine: Grade 3 esophageal varices, esophageal stenosis, small hiatal hernia, gastritis, portal hypertensive gastropathy, large duodenal polyp or varix. NSAIDs: None Anticoagulation: None Past Med Surg Social Fam HX - Past Medical History Medical history: cirrhosis, hypertension, liver disease Additional medical history: alcoholic cirrhosis Psychiatric history: depression - Past Surgical History Surgical History: herniorrhaphy Additional surgical history: b/l inguinal hernia repairs. - Social History Smoking Status: Never smoker Smokeless Tobacco Status: No Alcohol use: heavy, recent Drug use: marijuana - Family History Mother Adopted: [place]: Angelica Age: 85 Family Member Ethnicity: Non- Living Status: Still Living Hx Family Cancer: Yes ROS unobtainable: due to mental status - Constitutional Vitals: Temp Pulse Resp BP Pulse Ox 98.2 F 67 22 141/59 94 07/01/18 06:58 07/01/18 13:00 07/01/18 13:00 07/01/18 13:00 07/01/18 13:00 Exam: Sedated on Precedex - Head Head exam: Present: atraumatic, normocephalic - Eye Eye exam: Present: normal appearance, sclera anicteric - ENT ENT exam: Present: mucous membranes dry - Neck Neck exam general surgery: Present: normal inspection, trachea midline - Respiratory Respiratory exam: Present: CTAB. Absent: rales, rhonchi - Cardiovascular Cardiovascular exam: Present: RRR, +S1, +S2 - GI/Abdominal GI/Abdominal exam: Present: soft, no peritoneal signs. Absent: distended, firm, guarding, tenderness - Rectal Rectal exam: Present: deferred - Extremities Exam Extremities exam: Present: warm - Neurological Exam Neurological exam: Present: no focal deficits Additional comments: eccymosis - Psychiatric Psychiatric exam: Present: normal affect, normal mood - Skin Skin exam: Present: dry, intact, normal color, warm Results - Labs CBC & Chem 7: 07/01/18 07:01 07/01/18 07:01 Labs: Last Result 07/01/18 07/01/18 07:01 07:01 Calcium 9.0 Troponin I < 0.03 Entire Visit 07/01/18 07/01/18 07/01/18 07:01 07:01 07:01 Hgb 12.3 L Hct 35.6 L PT 14.2 H Total Bilirubin 4.7 H AST 80 H ALT 24 - ABG ABG results: PT/INR, D-dimer PT 14.2 Seconds (9.4-12.1) H 07/01/18 07:01 - Impressions Impressions Cervical Spine CT 06/30/18 16:13 IMPRESSION: No acute intracranial abnormality. No evidence acute fracture or traumatic malalignment of the cervical spine. D/ / Maximilian Zheng / Maximilian Zheng Interpreting Provider: Maximilian Zheng Chest X-Ray 06/30/18 16:13 IMPRESSION: No evidence for acute cardiopulmonary process. Previously noted left lateral 4th and 5th rib fractures on prior exam 06/25/2018 are not as well demonstrated currently but appear grossly stable in alignment. D/ / 06/30/2018 16:43:22 Erasto Matthews MD [facility] Interpreting Provider: Erasto Matthews MD Head CT 06/30/18 16:13 IMPRESSION: No acute intracranial abnormality. No evidence acute fracture or traumatic malalignment of the cervical spine. D/ / Maximilian Zheng / Maximilian Zheng Interpreting Provider: Maximilian Zheng Elbow X-Ray 06/30/18 16:14 IMPRESSION: Prominent soft tissue density dorsum of the proximal right forearm presumably reflecting hematoma/contusion. Probable old healed radial head fracture. Correlate with clinical history. Acute radial head fracture is a consideration, however the absence of joint effusion makes this unlikely. Peripheral vascular disease. Follow-up imaging recommended if pain persists or worsens following conservative management. D/ / Romeo Ogden / Romeo Ogden Interpreting Provider: Romeo Ogden Echocardiogram 06/30/18 20:02 Impressions: LVEF 60-65%. Normal LV chamber size, wall thickness and function. Normal right ventricular structure and function. Mild mitral regurgitation. Mild pulmonary hypertension. Estimated RVSP 38 mmHg. Left Ventricular Wall Motion: Rest Echo Findings All wall segments showed normal motion. Findings: Study Quality * Technically adequate exam. ECG Findings * Normal sinus rhythm. Left Ventricle * LVEF 60-65%. * Normal LV chamber size, wall thickness and function. Right Ventricle * Normal right ventricular structure and function. Left Atrium * Mild to moderately dilated left atrium. Right Atrium * Mildly dilated right atrium. Interatrial Septum * Interatrial septum not well evaluated. Aortic Valve * Aortic valve not well visualized. * No aortic regurgitation. * No aortic stenosis. Mitral Valve * Mild mitral annular calcification * Mild mitral regurgitation. * No mitral stenosis. Tricuspid Valve * Normal tricuspid valve structure and function. * Trace tricuspid regurgitation. * Mild pulmonary hypertension. Estimated RVSP 38 mmHg. Pulmonic Valve * Normal pulmonic valve structure and function. * No pulmonic regurgitation. Aorta * Normally sized aortic root. Pericardium * The pericardium appears normal. IVC * Normal IVC dimensions and inspiratory collapse. Pulmonary Artery * Normal visualized portions of the main pulmonary artery. Consult Discharge Plan - Plan Referrals: Deshaun Marc MD [Primary Care Provider] - <Manuelito Augustine - Last Filed: 07/06/18 05:41> Date of Encounter: 07/01/18 - Time Spent With Patient Total time spent is greater than 50% in coordination of care (as documented) at patient's floor/unit and/or counseling patient: GI History of Present Illness - Data of Consult Requesting Physician: Edwin Khan - Consult Narrative History of present illness: Mr. Mathews is a 58 year old male - Constitutional Vitals: Temp Pulse Resp BP Pulse Ox 98.3 F 74 18 155/71 97 07/06/18 03:31 07/06/18 03:31 07/06/18 03:31 07/06/18 03:31 07/06/18 03:31 Results - Labs CBC & Chem 7: 07/05/18 05:59 07/05/18 05:59 - ABG ABG results: PT/INR, D-dimer PT 14.2 Seconds (9.4-12.1) H 07/01/18 07:01 - Attending Attestation I have personally performed a face to face evaluation on this patient. I have reviewed and agree with the care plan. History and Exam by me shows:
[2018-07-01] MEDS ORDERED: Thiamine (B-1) 100 MG, Folic Acid 1 MG, MVI, adult with vitamin K 10 ML in 0.9 % Sodi... IVPB SCH (18:00)
--- NOTE | 2018-07-01 18:30 | Internal Med Progress Note ---
Hospitalist Progress Note - Encounter Date of Encounter: 07/01/18 Time of Encounter: 11:00 - Subjective Interval History: Patient is a 64-year-old male with past medical history Central for alcohol abuse/dependence with liver cirrhosis and mood disorder who presented with fall to be in alcohol withdrawals Patient was placed on a CIWA protocol on admission but was still symptomatic therefore had to be placed on Precedex drip and transferred to the intensive care unit. - Exam Vitals: Temp Pulse Resp BP Pulse Ox 97.5 F L 60 18 142/66 95 07/01/18 15:31 07/01/18 15:31 07/01/18 15:31 07/01/18 17:00 07/01/18 15:31 Exam: Gen.: Nonacute distress, alert and oriented 3 ENT: Mucosal membranes moist Respiratory: Lungs are clear to auscultation bilaterally without any wheezing rhonchi or rales Cardiovascular: Normal S1 and S2 regular rate rhythm no murmurs rubs or gallops Abdomen: Soft, nontender and nondistended with positive bowel sounds Extremities: No lower extremity edema Skin: Normal color - Assessment and Plan (1) Alcohol abuse Current Visit: Yes Status: Acute Assessment and Plan: History of chronic alcohol abuse reporting drinking on average a 12 pack of beer daily for the past 39 years. Patient was placed on a CIWA protocol on admission but was still symptomatic therefore had to be placed on Precedex drip and transferred to the intensive care unit. (2) Fall Current Visit: Yes Status: Acute Assessment and Plan: Suspect secondary to patient's chronic alcohol dependence/abuse After alcohol withdrawals will consult PT/OT for further evaluation (3) Traumatic hematoma of right forearm Current Visit: Yes Status: Acute Assessment and Plan: Large right mid dorsum forearm mass concerning for hematoma. X-ray of the forearm shows prominent soft tissue density presumably reflecting hematoma/contusion. Surgery with recommendations for medical management as no surgical intervention warranted at this time (4) Thrombocytopenia Current Visit: Yes Status: Acute Assessment and Plan: Thrombocytopenia secondary to liver cirrhosis Continue to monitor for active bleeding and also monitor hematoma on right forearm. (5) Hyperbilirubinemia Current Visit: Yes Status: Acute DVT Prophylaxis: SCDs - Time Spent with Patient Total time spent is greater than 50% in coordination of care (as documented) at patient's floor/unit and/or counseling patient: Internal Medicine: Result - Labs CBC & Chem 7: 07/01/18 07:01 07/01/18 07:01 Labs: Short CBC 07/01/18 Range/Units 07:01 WBC 4.0 L (4.3-11.1) K/mcL Hgb 12.3 L (12.9-16.9) g/dL Hct 35.6 L (37.5-50.1) % Plt Count 56 L (140-400) K/mcL Neutrophils # 2.8 (1.6-8.9) K/mcL BMP 07/01/18 07:01 Sodium 136 Potassium 3.9 Chloride 99 Carbon Dioxide 22 L BUN 8 Creatinine 0.65 L Glucose 81 Calcium 9.0 Cardiac Enzymes 07/01/18 Range/Units 07:01 Troponin I < 0.03 (< 0.04) ng/mL Liver Function 07/01/18 Range/Units 07:01 Total Bilirubin 4.7 H (0.3-1.0) mg/dL AST 80 H (13-39) Units/L ALT 24 (7-52) Units/L Alkaline Phosphatase 203 H (34-104) Units/L Albumin 3.4 L (3.5-5.7) g/dL Urine 06/30/18 Range/Units 18:50 Urine Color Yellow (Yellow) Urine Clarity Cloudy A (Clear) Urine pH 6.5 (5.0-8.0) pH Units Ur Specific [place] 1.011 (1.010-1.025) Urine Protein Negative (Neg-Trace) mg/dL Urine Glucose (UA) Normal (Normal) mg/dL - ABG Interpretation ABG results: PT/INR, D-dimer PT 14.2 Seconds (9.4-12.1) H 07/01/18 07:01 - Impressions Impressions Echocardiogram 06/30/18 20:02 Impressions: LVEF 60-65%. Normal LV chamber size, wall thickness and function. Normal right ventricular structure and function. Mild mitral regurgitation. Mild pulmonary hypertension. Estimated RVSP 38 mmHg. Left Ventricular Wall Motion: Rest Echo Findings All wall segments showed normal motion. Findings: Study Quality * Technically adequate exam. ECG Findings * Normal sinus rhythm. Left Ventricle * LVEF 60-65%. * Normal LV chamber size, wall thickness and function. Right Ventricle * Normal right ventricular structure and function. Left Atrium * Mild to moderately dilated left atrium. Right Atrium * Mildly dilated right atrium. Interatrial Septum * Interatrial septum not well evaluated. Aortic Valve * Aortic valve not well visualized. * No aortic regurgitation. * No aortic stenosis. Mitral Valve * Mild mitral annular calcification * Mild mitral regurgitation. * No mitral stenosis. Tricuspid Valve * Normal tricuspid valve structure and function. * Trace tricuspid regurgitation. * Mild pulmonary hypertension. Estimated RVSP 38 mmHg. Pulmonic Valve * Normal pulmonic valve structure and function. * No pulmonic regurgitation. Aorta * Normally sized aortic root. Pericardium * The pericardium appears normal. IVC * Normal IVC dimensions and inspiratory collapse. Pulmonary Artery * Normal visualized portions of the main pulmonary artery. Consult Discharge Plan - Plan Referrals: Deshaun Marc MD [Primary Care Provider] - (2) Fall Qualifiers: Encounter type: initial encounter Qualified Code(s): W19.XXXA - Unspecified fall, initial encounter
[2018-07-02] MEDS: Thiamine (B-1) 100 MG, Folic Acid 1 MG, MVI, adult with vitamin K 10 ML in 0.9 % Sodi... IVPB SCH ×2 (00:06→16:31)
[2018-07-02] MEDS: Loratadine 10 MG TABLET PO SCH (07:39)
[2018-07-02] MEDS: Fluticasone Propionate Nasal 50 MCG/SPRAY BOTTLE NS SCH ×2 (07:39→21:40)
[2018-07-02] MEDS: FLUoxetine HCl 10 MG CAPSULE PO SCH (07:39)
--- NOTE | 2018-07-02 09:46 | Electrocardiograph Report ---
[place] [id number] Test Date: 2018-07-01 Pat Name: Bret Mathews Department: 112 Room: 2N13 Gender: M Devops: JOSE : 1960 Requested By: Akila Blanco Order Number: [id number] Reading MD: Kaiser Weller Measurements Intervals [place] Rate: 72 P: 53 DC: 170 QRS: 39 QRSD: 103 T: 45 QT: 470 QTc: 494 Interpretive Statements SINUS RHYTHM PROLONGED QT INTERVAL Electronically Signed On 07-02-2018 9:44:52 EDT by Kaiser Weller
--- NOTE | 2018-07-02 11:20 | Internal Med Progress Note ---
Hospitalist Progress Note - Encounter Date of Encounter: 07/02/18 Time of Encounter: 11:00 - Subjective Interval History: Patient is a 64-year-old male with past medical history Central for alcohol abuse/dependence with liver cirrhosis and mood disorder who presented with fall to be in alcohol withdrawals Patient was placed on a CIWA protocol on admission but was still symptomatic yesterday therefore had to be placed on Precedex drip and transferred to the intensive care unit. Patient has been subsequently transferred to the progressive unit for continued management of alcohol withdrawal now on CIWA protocol. - Exam Vitals: Temp Pulse Resp BP Pulse Ox 97.6 F 72 18 165/76 100 07/02/18 06:47 07/02/18 07:44 07/02/18 06:47 07/02/18 06:47 07/02/18 06:47 Exam: Gen.: Nonacute distress, alert and oriented ENT: Mucosal membranes moist Respiratory: Lungs are clear to auscultation bilaterally without any wheezing rhonchi or rales Cardiovascular: Normal S1 and S2 regular rate rhythm no murmurs rubs or gallops Abdomen: Soft, nontender and nondistended with positive bowel sounds Extremities: No lower extremity edema Skin: Normal color - Assessment and Plan (1) Alcohol abuse Current Visit: Yes Status: Acute Assessment and Plan: Patient with history of chronic alcohol abuse reporting drinking on average a 12 pack of beer daily for the past 39 years. Patient was placed on a CIWA protocol on admission but was still symptomatic yesterday therefore had to be placed on Precedex drip and transferred to the intensive care unit. Patient has been subsequently transferred to the progressive unit for continued management of alcohol withdrawal now on CIWA protocol. (2) Fall Current Visit: Yes Status: Acute Assessment and Plan: Patient presents with history of increased frequency of falls with reported history of syncopal episodes, 2 of which occurred today in the setting of alcohol abuse. Suspect secondary to patient's chronic alcohol dependence/abuse After alcohol withdrawals will consult PT/OT for further evaluation (3) Traumatic hematoma of right forearm Current Visit: Yes Status: Acute Assessment and Plan: Large right mid dorsum forearm mass concerning for hematoma. X-ray of the forearm shows prominent soft tissue density presumably reflecting hematoma/contusion. Surgery with recommendations for medical management as no surgical intervention warranted at this time (4) Thrombocytopenia Current Visit: Yes Status: Acute Assessment and Plan: Thrombocytopenia secondary to liver cirrhosis Continue to monitor for active bleeding and also monitor hematoma on right forearm. (5) Hyperbilirubinemia Current Visit: Yes Status: Acute Assessment and Plan: Hyperbilirubinemia in the setting of liver cirrhosis. GI consulted and appreciate recommendations DVT Prophylaxis: SCDs - Time Spent with Patient Total time spent is greater than 50% in coordination of care (as documented) at patient's floor/unit and/or counseling patient: Internal Medicine: Result - Labs CBC & Chem 7: 07/02/18 11:42 07/02/18 11:42 - ABG Interpretation ABG results: PT/INR, D-dimer PT 14.2 Seconds (9.4-12.1) H 07/01/18 07:01 - Impressions Impressions Liver Ultrasound 07/01/18 18:00 IMPRESSION: Heterogeneous echotexture throughout the liver, compatible with diffuse hepatocellular disease such as cirrhosis. Cholelithiasis. Mild gallbladder wall thickening, either due to the partially contracted state of the gallbladder or reactive due to the underlying ascites D/ / Dean Alvarez MD / Dean Alvarez MD Interpreting Provider: Dean Alvarez MD Brain MRI 07/02/18 09:45 IMPRESSION: No acute intracranial abnormality. Cerebellar atrophy. No substantial white-matter disease. D/ / Mesfin Ford MD / Mesfin Ford MD Interpreting Provider: Mesfin oFrd MD Consult Discharge Plan - Plan Referrals: Deshaun Marc MD [Primary Care Provider] - (2) Fall Qualifiers: Encounter type: initial encounter Qualified Code(s): W19.XXXA - Unspecified fall, initial encounter
[2018-07-02 12:27] LABS: Basophils % 0.3 %; Immature Granulocytes % 0.3 % (0-4)
[2018-07-02 12:29] LABS: Eosinophils % 0.7 %; Hematocrit 35.5 % (37.5-50.1); Hemoglobin 12.2 g/dL (12.9-16.9); Immature Platelets 6.2 % (1.1-6.1); Lymphocytes # 0.4 K/mcL (0.6-4.6); Lymphocytes % 14.1 %; Mean Corpuscular HGB Conc 34.4 g/dL (31.6-35.5); Mean Corpuscular Hemoglobin 35.8 pg (28.0-33.3); Mean Corpuscular Volume 104.1 fL (83.0-100.0); Mean Platelet Volume 11.3 fL (9.4-12.4); Monocytes # 0.4 K/mcL (0.0-1.3); Monocytes % 12.4 %; Neutrophils # 2.1 K/mcL (1.6-8.9); Red Blood Count 3.41 M/mcL (4.19-5.50); Red Cell Distribution Width 13.7 % (11.5-14.5); Segmented Neutrophils % 72.2 %
[2018-07-02 12:30] LABS: Platelet Count 41 K/mcL (140-400)
[2018-07-02 12:44] LABS: BUN/Creatinine Ratio 20 (6-26); Blood Urea Nitrogen 10 mg/dL (8-23); Calcium 8.5 mg/dL (8.6-10.3); Carbon Dioxide 24 mEq/L (23-29); Chloride 101 mEq/L (98-107); Glucose 76 mg/dL (70-105); Osmolality,Calculated 278 (280-300); Potassium 3.9 mEq/L (3.5-5.1); Sodium 135 mEq/L (136-145); eGFR For Non-African Americans > 60 (> 60)
[2018-07-02] MEDS ORDERED: Acetaminophen 325 MG TABLET PO PRN (23:40)
[2018-07-03] MEDS: Ondansetron 4 MG/2 ML VIAL IVP PRN ×2 (00:43→21:10)
[2018-07-03] MEDS: *HR* LORazepam 2 MG/ML VIAL IVP PRN ×3 (01:09→21:18)
[2018-07-03 03:48] LABS: Basophils % 0.3 %; Hemoglobin 11.7 g/dL (12.9-16.9); Immature Granulocytes % 0.3 % (0-4); Mean Corpuscular Hemoglobin 35.8 pg (28.0-33.3); Red Blood Count 3.27 M/mcL (4.19-5.50)
[2018-07-03 03:50] LABS: Eosinophils % 0.8 %; Hematocrit 33.9 % (37.5-50.1); Lymphocytes # 0.7 K/mcL (0.6-4.6); Mean Corpuscular HGB Conc 34.5 g/dL (31.6-35.5); Mean Corpuscular Volume 103.7 fL (83.0-100.0); Mean Platelet Volume 10.8 fL (9.4-12.4); Monocytes % 15.1 %; Red Cell Distribution Width 13.8 % (11.5-14.5); Segmented Neutrophils % 64.5 %
[2018-07-03 04:01] LABS: Monocytes # 0.5 K/mcL (0.0-1.3); Neutrophils # 2.3 K/mcL (1.6-8.9); Platelet Count 48 K/mcL (140-400)
[2018-07-03 04:11] LABS: BUN/Creatinine Ratio 16 (6-26); Blood Urea Nitrogen 10 mg/dL (8-23); Calcium 7.9 mg/dL (8.6-10.3); Carbon Dioxide 25 mEq/L (23-29); Chloride 103 mEq/L (98-107); Glucose 80 mg/dL (70-105); Osmolality,Calculated 282 (280-300); Potassium 3.5 mEq/L (3.5-5.1); Sodium 137 mEq/L (136-145); eGFR For Non-African Americans > 60 (> 60)
[2018-07-03] MEDS: Thiamine (B-1) 100 MG TABLET PO SCH (07:53)
[2018-07-03] MEDS: Folic Acid 1 MG TABLET PO SCH (07:53)
[2018-07-03] MEDS: Spironolactone 25 MG TABLET PO SCH (07:53)
[2018-07-03] MEDS: Loratadine 10 MG TABLET PO SCH (07:54)
[2018-07-03] MEDS: FLUoxetine HCl 10 MG CAPSULE PO SCH (07:54)
[2018-07-03] MEDS: Fluticasone Propionate Nasal 50 MCG/SPRAY BOTTLE NS SCH ×2 (07:55→21:50)
[2018-07-03] MEDS: Dexmedetomidine HCl 400 MCG/100 ML MLS IVC SCH (15:48)
--- NOTE | 2018-07-03 17:37 | Internal Med Progress Note ---
Hospitalist Progress Note - Encounter Date of Encounter: 07/03/18 Time of Encounter: 11:00 - Subjective Interval History: Patient is a 64-year-old male with past medical history Central for alcohol abuse/dependence with liver cirrhosis and mood disorder who presented with fall to be in alcohol withdrawals Patient was placed on a CIWA protocol on admission but was still symptomatic on 07/01/18 therefore had to be placed on Precedex drip and transferred to the intensive care unit. Patient has been subsequently transferred to the progressive unit on 07/02 for continued management of alcohol withdrawal now on CIWA protocol. Patient this morning now alert and oriented 3 requiring less Ativan on CIWA protocol Due to frequent falls PT/OT was consulted with recommendations for half-way facility placement for strengthening/conditioning; social work faculty member will assist with placement on 07/06/18 - Exam Vitals: Temp Pulse Resp BP Pulse Ox 98.4 F 69 18 143/77 96 07/03/18 16:43 07/03/18 16:43 07/03/18 11:59 07/03/18 16:43 07/03/18 16:43 Exam: Gen.: Nonacute distress, alert and oriented 3 ENT: Mucosal membranes moist Respiratory: Lungs are clear to auscultation bilaterally without any wheezing rhonchi or rales Cardiovascular: Normal S1 and S2 regular rate rhythm no murmurs rubs or gallops Abdomen: Soft, nontender and nondistended with positive bowel sounds Extremities: No lower extremity edema Skin: Normal color - Assessment and Plan (1) Alcohol abuse Current Visit: Yes Status: Acute Assessment and Plan: Patient is a 64-year-old male with past medical history Central for alcohol abuse/dependence with liver cirrhosis and mood disorder who presented with fall to be in alcohol withdrawals Patient was placed on a CIWA protocol on admission but was still symptomatic on 07/01/18 therefore had to be placed on Precedex drip and transferred to the intensive care unit. Patient has been subsequently transferred to the progressive unit on 07/02 for continued management of alcohol withdrawal now on CIWA protocol. Patient this morning now alert and oriented 3 requiring less Ativan on CIWA protocol (2) Fall Current Visit: Yes Status: Acute Assessment and Plan: Patient presents with history of increased frequency of falls with reported history of syncopal episodes, 2 of which occurred today in the setting of al cohol abuse. Suspect secondary to patient's chronic alcohol dependence/abuse Due to frequent falls PT/OT was consulted with recommendations for half-way facility placement for strengthening/conditioning; social work faculty member will assist with placement on 07/06/18 (3) Traumatic hematoma of right forearm Current Visit: Yes Status: Acute Assessment and Plan: Large right mid dorsum forearm mass concerning for hematoma. X-ray of the forearm shows prominent soft tissue density presumably reflecting hematoma/contusion. Surgery with recommendations for medical management as no surgical intervention warranted at this time (4) Thrombocytopenia Current Visit: Yes Status: Acute Assessment and Plan: Thrombocytopenia secondary to liver cirrhosis Continue to monitor for active bleeding and also monitor hematoma on right forearm. (5) Hyperbilirubinemia Current Visit: Yes Status: Acute Assessment and Plan: Hyperbilirubinemia in the setting of liver cirrhosis. GI consulted and appreciate recommendations DVT Prophylaxis: SCDs - Time Spent with Patient Total time spent is greater than 50% in coordination of care (as documented) at patient's floor/unit and/or counseling patient: Internal Medicine: Result - Labs CBC & Chem 7: 07/03/18 03:31 07/03/18 03:31 Labs: Short CBC 07/03/18 Range/Units 03:31 WBC 3.6 L (4.3-11.1) K/mcL Hgb 11.7 L (12.9-16.9) g/dL Hct 33.9 L (37.5-50.1) % Plt Count 48 L (140-400) K/mcL Neutrophils # 2.3 (1.6-8.9) K/mcL BMP 07/03/18 03:31 Sodium 137 Potassium 3.5 Chloride 103 Carbon Dioxide 25 BUN 10 Creatinine 0.63 L Glucose 80 Calcium 7.9 L - ABG Interpretation ABG results: PT/INR, D-dimer PT 14.2 Seconds (9.4-12.1) H 07/01/18 07:01 Consult Discharge Plan - Plan Referrals: Deshaun Marc MD [Primary Care Provider] - (2) Fall Qualifiers: Encounter type: initial encounter Qualified Code(s): W19.XXXA - Unspecified fall, initial encounter
[2018-07-04] MEDS: *HR* LORazepam 2 MG/ML VIAL IVP PRN ×2 (01:01→02:56)
--- NOTE | 2018-07-04 05:41 | Event Note ---
Date of Encounter: 07/04/18 Time of Encounter: 03:08 Alerted by pts. nurse Darren RN that the pt. was a transfer from for alcohol withdrawal and post-fall. Patient scored a 20 on the CIWA scale and nurse reported pt. required a breakthrough dose of Ativan for hallucinations. Nurse in room monitoring pt. Alerted at 03:12 that the pt. was now vomiting and continued to have hallucinations. Aspiration precautions and elevate HOB ordered. Alerted at 03:34 to call pts. nurse KODI. Called nurse who wished that I come see the pt. immediately. Went to see pt. who was in bed and shivering, coughing, and intermittently vomiting which required suctioning. Pt. had cardiac diet ordered which was cancelled and pt. made NPO. Stat 1V Portable CXR ordered to assess for aspiration. CXR showed clear lungs. No pneumothorax, pleural effusion, or airspace consolidation. Normal heart size and mediastinal contours. No acute osseous abnormality. No evidence of aspiration pneumonitis or any other acute cardiopulmonary abnormality. Nurse instructed to continue monitoring pt. very closely and alert me immediately of any adverse changes.
[2018-07-04] MEDS: Spironolactone 25 MG TABLET PO SCH (08:21)
[2018-07-04] MEDS: Loratadine 10 MG TABLET PO SCH (08:21)
[2018-07-04] MEDS: FLUoxetine HCl 10 MG CAPSULE PO SCH (08:22)
[2018-07-04] MEDS: Folic Acid 1 MG TABLET PO SCH (08:22)
[2018-07-04] MEDS: Thiamine (B-1) 100 MG TABLET PO SCH (08:22)
[2018-07-04] MEDS: Fluticasone Propionate Nasal 50 MCG/SPRAY BOTTLE NS SCH ×2 (09:09→19:46)
--- NOTE | 2018-07-04 09:27 | Internal Med Progress Note ---
Hospitalist Progress Note - Encounter Date of Encounter: 07/04/18 Time of Encounter: 11:00 - Subjective Interval History: Patient is a 64-year-old male with past medical history Central for alcohol abuse/dependence with liver cirrhosis and mood disorder who presented with fall to be in alcohol withdrawals Patient was placed on a CIWA protocol on admission but was still symptomatic on 07/01/18 therefore had to be placed on Precedex drip and transferred to the intensive care unit. Patient has been subsequently transferred to the progressive unit on 07/02/18 for continued management of alcohol withdrawal now on CIWA protocol. Patient on 07/03/18 was alert and oriented 3 requiring less Ativan on CIWA protocol Overnight however patient became more agitated with hallucinations and was found to have a score of 20 on CIWA scale Due to frequent falls PT/OT was consulted with recommendations for alf facility placement for strengthening/conditioning; social media project manager will assist with placement on 07/06/18 - Exam Vitals: Temp Pulse Resp BP Pulse Ox 98.7 F 75 17 158/78 93 07/04/18 06:41 07/04/18 06:41 07/04/18 06:41 07/04/18 06:41 07/04/18 06:41 Exam: Gen.: Nonacute distress, alert and oriented 3 ENT: Mucosal membranes moist Respiratory: Lungs are clear to auscultation bilaterally without any wheezing rhonchi or rales Cardiovascular: Normal S1 and S2 regular rate rhythm no murmurs rubs or gallops Abdomen: Soft, nontender and nondistended with positive bowel sounds Extremities: No lower extremity edema Skin: Normal color - Assessment and Plan (1) Alcohol abuse Current Visit: Yes Status: Acute Assessment and Plan: Patient is a 64-year-old male with past medical history Central for alcohol abuse/dependence with liver cirrhosis and mood disorder who presented with fall to be in alcohol withdrawals Patient was placed on a CIWA protocol on admission but was still symptomatic on 07/01/18 therefore had to be placed on Precedex drip and transferred to the intensive care unit. Patient has been subsequently transferred to the progressive unit on 07/02/18 for continued management of alcohol withdrawal now on CIWA protocol. Patient on 07/03/18 was alert and oriented 3 requiring less Ativan on CIWA protocol Overnight however patient became more agitated with hallucinations and was found to have a score of 20 on CIWA scale Patient this morning alert and oriented not requiring any Ativan for withdrawal symptoms Will continue to monitor (2) Fall Current Visit: Yes Status: Acute Assessment and Plan: Patient presents with history of increased frequency of falls Suspect secondary to patient's chronic alcohol dependence/abuse Due to frequent falls PT/OT was consulted with recommendations for alf facility placement for strengthening/conditioning; social media project manager will assist with placement on 07/06/18 (3) Traumatic hematoma of right forearm Current Visit: Yes Status: Acute Assessment and Plan: Large right mid dorsum forearm mass concerning for hematoma. X-ray of the forearm shows prominent soft tissue density presumably reflecting hematoma/contusion. Surgery with recommendations for medical management as no surgical intervention warranted at this time (4) Thrombocytopenia Current Visit: Yes Status: Acute Assessment and Plan: Thrombocytopenia secondary to liver cirrhosis Continue to monitor for active bleeding and also monitor hematoma on right forearm. (5) Hyperbilirubinemia Current Visit: Yes Status: Acute Assessment and Plan: Hyperbilirubinemia in the setting of liver cirrhosis. GI consulted and appreciate recommendations DVT Prophylaxis: SCDs - Time Spent with Patient Total time spent is greater than 50% in coordination of care (as documented) at patient's floor/unit and/or counseling patient: Internal Medicine: Result - Labs CBC & Chem 7: 07/04/18 10:23 07/04/18 10:23 - ABG Interpretation ABG results: PT/INR, D-dimer PT 14.2 Seconds (9.4-12.1) H 07/01/18 07:01 - Impressions Impressions Chest X-Ray 07/04/18 03:38 IMPRESSION: No evidence of aspiration pneumonitis or any other acute cardiopulmonary abnormality. D/ / Sharif Soni / Sharif Soni Interpreting Provider: Sharif Soni Consult Discharge Plan - Plan Referrals: Deshaun Marc MD [Primary Care Provider] - (2) Fall Qualifiers: Encounter type: initial encounter Qualified Code(s): W19.XXXA - Unspecified fall, initial encounter
[2018-07-04 10:36] LABS: Mean Corpuscular Volume 103.8 fL (83.0-100.0)
[2018-07-04 10:37] LABS: Immature Granulocytes % 0.2 % (0-4)
[2018-07-04 10:38] LABS: Basophils % 0.4 %; Eosinophils # 0.1 K/mcL (0.0-0.6); Eosinophils % 1.1 %; Hematocrit 35.1 % (37.5-50.1); Hemoglobin 12.2 g/dL (12.9-16.9); Immature Platelets 4.8 % (1.1-6.1); Lymphocytes # 0.8 K/mcL (0.6-4.6); Lymphocytes % 17.5 %; Mean Corpuscular HGB Conc 34.8 g/dL (31.6-35.5); Mean Corpuscular Hemoglobin 36.1 pg (28.0-33.3); Mean Platelet Volume 10.2 fL (9.4-12.4); Monocytes # 0.6 K/mcL (0.0-1.3); Monocytes % 14.2 %; Red Blood Count 3.38 M/mcL (4.19-5.50); Segmented Neutrophils % 66.6 %
[2018-07-04 10:49] LABS: Platelet Count 57 K/mcL (140-400)
[2018-07-04 10:57] LABS: Alanine Aminotransferase 19 Units/L (7-52); Albumin 2.9 g/dL (3.5-5.7); Albumin/Globulin Ratio 0.8 (1.1-2.2); Alkaline Phosphatase 168 Units/L (34-104); Aspartate Amino Transferase 45 Units/L (13-39); BUN/Creatinine Ratio 14 (6-26); Bilirubin,Direct 1.9 mg/dL (0.0-0.2); Bilirubin,Indirect 2.6 mg/dL (0.0-1.2); Bilirubin,Total 4.5 mg/dL (0.3-1.0); Blood Urea Nitrogen 8 mg/dL (8-23); Calcium 8.1 mg/dL (8.6-10.3); Carbon Dioxide 28 mEq/L (23-29); Chloride 102 mEq/L (98-107); Ethanol < 10 mg/dL (Less than 10); Globulin 3.7 g/dL (2.4-3.5); Glucose 94 mg/dL (70-105); Osmolality,Calculated 278 (280-300); Potassium 3.3 mEq/L (3.5-5.1); Sodium 135 mEq/L (136-145); Total Protein 6.6 g/dL (6.4-8.9); eGFR For Non-African Americans > 60 (> 60)
[2018-07-05 07:06] LABS: Immature Granulocytes % 0.3 % (0-4)
[2018-07-05 07:08] LABS: Basophils % 0.5 %; Eosinophils # 0.1 K/mcL (0.0-0.6); Eosinophils % 2.3 %; Hematocrit 35.9 % (37.5-50.1); Hemoglobin 12.5 g/dL (12.9-16.9); Immature Platelets 6.2 % (1.1-6.1); Lymphocytes % 24.4 %; Mean Corpuscular HGB Conc 34.8 g/dL (31.6-35.5); Mean Corpuscular Hemoglobin 36.2 pg (28.0-33.3); Mean Corpuscular Volume 104.1 fL (83.0-100.0); Monocytes # 0.6 K/mcL (0.0-1.3); Monocytes % 16.3 %; Neutrophils # 2.2 K/mcL (1.6-8.9); Red Blood Count 3.45 M/mcL (4.19-5.50); Red Cell Distribution Width 14.1 % (11.5-14.5); Segmented Neutrophils % 56.2 %
[2018-07-05 07:09] LABS: Platelet Count 58 K/mcL (140-400)
[2018-07-05 07:21] LABS: BUN/Creatinine Ratio 15 (6-26); Blood Urea Nitrogen 8 mg/dL (8-23); Calcium 8.4 mg/dL (8.6-10.3); Carbon Dioxide 27 mEq/L (23-29); Chloride 102 mEq/L (98-107); Glucose 85 mg/dL (70-105); Osmolality,Calculated 278 (280-300); Potassium 3.2 mEq/L (3.5-5.1); Sodium 135 mEq/L (136-145); eGFR For Non-African Americans > 60 (> 60)
[2018-07-05] MEDS: Thiamine (B-1) 100 MG TABLET PO SCH (08:34)
[2018-07-05] MEDS: Loratadine 10 MG TABLET PO SCH (08:34)
[2018-07-05] MEDS: Spironolactone 25 MG TABLET PO SCH (08:34)
[2018-07-05] MEDS: FLUoxetine HCl 10 MG CAPSULE PO SCH (08:34)
[2018-07-05] MEDS: Folic Acid 1 MG TABLET PO SCH (08:34)
[2018-07-05] MEDS: Fluticasone Propionate Nasal 50 MCG/SPRAY BOTTLE NS SCH ×2 (08:38→20:28)
--- NOTE | 2018-07-05 11:28 | Internal Med Progress Note ---
Hospitalist Progress Note - Encounter Date of Encounter: 07/05/18 Time of Encounter: 11:00 - Subjective Interval History: Patient is a 64-year-old male with past medical history Central for alcohol abuse/dependence with liver cirrhosis and mood disorder who presented with fall to be in alcohol withdrawals Patient was placed on a CIWA protocol on admission but was still symptomatic on 07/01/18 therefore had to be placed on Precedex drip and transferred to the intensive care unit. Patient has been subsequently transferred to the progressive unit on 07/02/18 for continued management of alcohol withdrawal now on CIWA protocol. Patient on 07/03/18 was alert and oriented 3 requiring less Ativan on CIWA protocol Overnight on 07/04/18 however patient became more agitated with hallucinations and was found to have a score of 20 on CIWA scale No acute issues overnight Due to frequent falls PT/OT was consulted with recommendations for shelter facility placement for strengthening/conditioning; social services aide will assist with placement on 07/06/18 - Exam Vitals: Temp Pulse Resp BP Pulse Ox 98.5 F 80 16 148/76 97 07/05/18 07:06 07/05/18 07:06 07/05/18 07:06 07/05/18 07:06 07/05/18 08:00 Exam: Gen.: Nonacute distress, alert and oriented 3 ENT: Mucosal membranes moist Respiratory: Lungs are clear to auscultation bilaterally without any wheezing rhonchi or rales Cardiovascular: Normal S1 and S2 regular rate rhythm no murmurs rubs or gallops Abdomen: Soft, nontender and nondistended with positive bowel sounds Extremities: No lower extremity edema Skin: Normal color - Assessment and Plan (1) Alcohol abuse Current Visit: Yes Status: Acute Assessment and Plan: Patient is a 64-year-old male with past medical history Central for alcohol abuse/dependence with liver cirrhosis and mood disorder who presented with fall to be in alcohol withdrawals Patient was placed on a CIWA protocol on admission but was still symptomatic on 07/01/18 therefore had to be placed on Precedex drip and transferred to the intensive care unit. Patient has been subsequently transferred to the progressive unit on 07/02/18 for continued management of alcohol withdrawal now on CIWA protocol. Patient on 07/03/18 was alert and oriented 3 requiring less Ativan on CIWA protocol Overnight on 07/04/18 however patient became more agitated with hallucinations and was found to have a score of 20 on CIWA scale No acute issues overnight Will continue to monitor (2) Fall Current Visit: Yes Status: Acute Assessment and Plan: Patient presents with history of increased frequency of falls Suspect secondary to patient's chronic alcohol dependence/abuse Due to frequent falls PT/OT was consulted with recommendations for shelter facility placement for strengthening/conditioning; social services aide will assist with placement on 07/06/18 (3) Traumatic hematoma of right forearm Current Visit: Yes Status: Acute Assessment and Plan: Large right mid dorsum forearm mass concerning for hematoma. X-ray of the forearm shows prominent soft tissue density presumably reflecting hematoma/contusion. Surgery with recommendations for medical management as no surgical intervention warranted at this time (4) Thrombocytopenia Current Visit: Yes Status: Acute Assessment and Plan: Thrombocytopenia secondary to liver cirrhosis Continue to monitor for active bleeding and also monitor hematoma on right forearm. (5) Hyperbilirubinemia Current Visit: Yes Status: Acute Assessment and Plan: Hyperbilirubinemia in the setting of liver cirrhosis. GI consulted and appreciate recommendations DVT Prophylaxis: SCDs - Time Spent with Patient Total time spent is greater than 50% in coordination of care (as documented) at patient's floor/unit and/or counseling patient: Internal Medicine: Result - Labs CBC & Chem 7: 07/05/18 05:59 07/05/18 05:59 Labs: Short CBC 07/05/18 Range/Units 05:59 WBC 3.9 L (4.3-11.1) K/mcL Hgb 12.5 L (12.9-16.9) g/dL Hct 35.9 L (37.5-50.1) % Plt Count 58 L (140-400) K/mcL Neutrophils # 2.2 (1.6-8.9) K/mcL BMP 07/05/18 05:59 Sodium 135 L Potassium 3.2 L Chloride 102 Carbon Dioxide 27 BUN 8 Creatinine 0.54 L Glucose 85 Calcium 8.4 L - ABG Interpretation ABG results: PT/INR, D-dimer PT 14.2 Seconds (9.4-12.1) H 07/01/18 07:01 Consult Discharge Plan - Plan Referrals: Deshaun Marc MD [Primary Care Provider] - (2) Fall Qualifiers: Encounter type: initial encounter Qualified Code(s): W19.XXXA - Unspecified fall, initial encounter
[2018-07-06 06:49] LABS: Basophils % 0.7 %; Eosinophils # 0.1 K/mcL (0.0-0.6); Eosinophils % 2.4 %; Hemoglobin 12.6 g/dL (12.9-16.9); Immature Granulocytes % 0.5 % (0-4); Lymphocytes % 22.9 %; Mean Corpuscular Hemoglobin 35.9 pg (28.0-33.3); Mean Corpuscular Volume 102.6 fL (83.0-100.0); Monocytes # 0.7 K/mcL (0.0-1.3); Monocytes % 17.3 %; Red Blood Count 3.51 M/mcL (4.19-5.50); Red Cell Distribution Width 14.1 % (11.5-14.5); Segmented Neutrophils % 56.2 %
[2018-07-06 06:52] LABS: Neutrophils # 2.4 K/mcL (1.6-8.9); Platelet Count 70 K/mcL (140-400)
[2018-07-06 07:04] LABS: BUN/Creatinine Ratio 15 (6-26); Blood Urea Nitrogen 8 mg/dL (8-23); Calcium 8.3 mg/dL (8.6-10.3); Carbon Dioxide 26 mEq/L (23-29); Chloride 100 mEq/L (98-107); Glucose 89 mg/dL (70-105); Osmolality,Calculated 274 (280-300); Potassium 3.3 mEq/L (3.5-5.1); Sodium 133 mEq/L (136-145); eGFR For Non-African Americans > 60 (> 60)
[2018-07-06] MEDS: FLUoxetine HCl 10 MG CAPSULE PO SCH (10:47)
[2018-07-06] MEDS: Spironolactone 25 MG TABLET PO SCH (10:47)
[2018-07-06] MEDS: Loratadine 10 MG TABLET PO SCH (10:47)
[2018-07-06] MEDS: Folic Acid 1 MG TABLET PO SCH (10:47)
[2018-07-06] MEDS: Thiamine (B-1) 100 MG TABLET PO SCH (10:47)
[2018-07-06] MEDS: Fluticasone Propionate Nasal 50 MCG/SPRAY BOTTLE NS SCH ×2 (10:48→22:59)
--- NOTE | 2018-07-06 18:35 | Internal Med Progress Note ---
Hospitalist Progress Note - Encounter Date of Encounter: 07/06/18 Time of Encounter: 11:00 - Subjective Interval History: Patient is a 64-year-old male with past medical history Central for alcohol abuse/dependence with liver cirrhosis and mood disorder who presented with fall to be in alcohol withdrawals Patient was placed on a CIWA protocol on admission but was still symptomatic on 07/01/18 therefore had to be placed on Precedex drip and transferred to the intensive care unit. Patient has been subsequently transferred to the progressive unit on 07/02/18 for continued management of alcohol withdrawal now on CIWA protocol. Patient on 07/03/18 was alert and oriented 3 requiring less Ativan on CIWA protocol Overnight on 07/04/18 however patient became more agitated with hallucinations and was found to have a score of 20 on CIWA scale No acute issues overnight and patient alert and oriented 3 this morning on 07/06/18 Due to frequent falls PT/OT was consulted with recommendations for prison facility placement for strengthening/conditioning; psychologist social will assist with placement - Exam Vitals: Temp Pulse Resp BP Pulse Ox 98.1 F 67 18 147/79 98 07/06/18 15:50 07/06/18 15:50 07/06/18 15:50 07/06/18 15:50 07/06/18 15:50 Exam: Gen.: Nonacute distress, alert and oriented 3 ENT: Mucosal membranes moist Respiratory: Lungs are clear to auscultation bilaterally without any wheezing rhonchi or rales Cardiovascular: Normal S1 and S2 regular rate rhythm no murmurs rubs or gallops Abdomen: Soft, nontender and nondistended with positive bowel sounds Extremities: No lower extremity edema Skin: Normal color - Assessment and Plan (1) Alcohol abuse Current Visit: Yes Status: Acute Assessment and Plan: Patient is a 64-year-old male with past medical history Central for alcohol abuse/dependence with liver cirrhosis and mood disorder who presented with fall to be in alcohol withdrawals Patient was placed on a CIWA protocol on admission but was still symptomatic on 07/01/18 therefore had to be placed on Precedex drip and transferred to the intensive care unit. Patient has been subsequently transferred to the progressive unit on 07/02/18 for continued management of alcohol withdrawal now on CIWA protocol. Patient on 07/03/18 was alert and oriented 3 requiring less Ativan on CIWA protocol Overnight on 07/04/18 however patient became more agitated with hallucinations and was found to have a score of 20 on CIWA scale No acute issues overnight Will continue to monitor (2) Fall Current Visit: Yes Status: Acute Assessment and Plan: Patient presents with history of increased frequency of falls Suspect secondary to patient's chronic alcohol dependence/abuse Due to frequent falls PT/OT was consulted with recommendations for prison facility placement for strengthening/conditioning; psychologist social will assist with placement (3) Traumatic hematoma of right forearm Current Visit: Yes Status: Acute Assessment and Plan: Large right mid dorsum forearm mass concerning for hematoma. X-ray of the forearm shows prominent soft tissue density presumably reflecting hematoma/contusion. Surgery with recommendations for medical management as no surgical intervention warranted at this time (4) Thrombocytopenia Current Visit: Yes Status: Acute Assessment and Plan: Thrombocytopenia secondary to liver cirrhosis Continue to monitor for active bleeding and also monitor hematoma on right forearm. (5) Hyperbilirubinemia Current Visit: Yes Status: Acute Assessment and Plan: Hyperbilirubinemia in the setting of liver cirrhosis. GI consulted and appreciate recommendations - Time Spent with Patient Total time spent is greater than 50% in coordination of care (as documented) at patient's floor/unit and/or counseling patient: Internal Medicine: Result - Labs CBC & Chem 7: 07/06/18 06:16 07/06/18 06:16 Labs: Short CBC 07/06/18 Range/Units 06:16 WBC 4.2 L (4.3-11.1) K/mcL Hgb 12.6 L (12.9-16.9) g/dL Hct 36.0 L (37.5-50.1) % Plt Count 70 L (140-400) K/mcL Neutrophils # 2.4 (1.6-8.9) K/mcL BMP 07/06/18 06:16 Sodium 133 L Potassium 3.3 L Chloride 100 Carbon Dioxide 26 BUN 8 Creatinine 0.54 L Glucose 89 Calcium 8.3 L - ABG Interpretation ABG results: PT/INR, D-dimer PT 14.2 Seconds (9.4-12.1) H 07/01/18 07:01 Consult Discharge Plan - Plan Referrals: Deshaun Marc MD [Primary Care Provider] - (2) Fall Qualifiers: Encounter type: initial encounter Qualified Code(s): W19.XXXA - Unspecified fall, initial encounter
[2018-07-07] MEDS: Spironolactone 25 MG TABLET PO SCH (09:19)
[2018-07-07] MEDS: Loratadine 10 MG TABLET PO SCH (09:19)
[2018-07-07] MEDS: FLUoxetine HCl 10 MG CAPSULE PO SCH (09:19)
[2018-07-07] MEDS: Thiamine (B-1) 100 MG TABLET PO SCH (09:19)
[2018-07-07] MEDS: Folic Acid 1 MG TABLET PO SCH (09:19)
[2018-07-07] MEDS: Fluticasone Propionate Nasal 50 MCG/SPRAY BOTTLE NS SCH ×2 (09:21→22:07)
--- NOTE | 2018-07-07 17:49 | Internal Med Progress Note ---
Hospitalist Progress Note - Encounter Date of Encounter: 07/07/18 Time of Encounter: 11:00 - Subjective Interval History: Patient is a 64-year-old male with past medical history Central for alcohol abuse/dependence with liver cirrhosis and mood disorder who presented with fall to be in alcohol withdrawals Patient was placed on a CIWA protocol on admission but was still symptomatic on 07/01/18 therefore had to be placed on Precedex drip and transferred to the intensive care unit. Patient has been subsequently transferred to the progressive unit on 07/02/18 for continued management of alcohol withdrawal now on CIWA protocol. Patient on 07/03/18 was alert and oriented 3 requiring less Ativan on CIWA protocol Overnight on 07/04/18 however patient became more agitated with hallucinations and was found to have a score of 20 on CIWA scale No acute issues overnight and patient alert and oriented 3 this morning on 07/06/18 Patient remains alert and oriented 3 and continues to have no issues overnight on 07/07/18 Due to frequent falls PT/OT was consulted with recommendations for detention facility placement for strengthening/conditioning; social worker clinical will assist with placement - Exam Vitals: Temp Pulse Resp BP Pulse Ox 98.6 F 73 14 140/69 97 07/07/18 16:47 07/07/18 16:47 07/07/18 16:47 07/07/18 16:47 07/07/18 16:47 Exam: Gen.: Nonacute distress, alert and oriented 3 ENT: Mucosal membranes moist Respiratory: Lungs are clear to auscultation bilaterally without any wheezing rhonchi or rales Cardiovascular: Normal S1 and S2 regular rate rhythm no murmurs rubs or gallops Abdomen: Soft, nontender and nondistended with positive bowel sounds Extremities: No lower extremity edema Skin: Normal color - Assessment and Plan (1) Alcohol abuse Current Visit: Yes Status: Acute Assessment and Plan: Patient is a 64-year-old male with past medical history Central for alcohol abuse/dependence with liver cirrhosis and mood disorder who presented with fall to be in alcohol withdrawals Patient was placed on a CIWA protocol on admission but was still symptomatic on 07/01/18 therefore had to be placed on Precedex drip and transferred to the intensive care unit. Patient has been subsequently transferred to the progressive unit on 07/02/18 for continued management of alcohol withdrawal now on CIWA protocol. Patient on 07/03/18 was alert and oriented 3 requiring less Ativan on CIWA protocol Overnight on 07/04/18 however patient became more agitated with hallucinations and was found to have a score of 20 on CIWA scale Patient has had no further issues during remainder of his hospital stay and awaiting placement (2) Fall Current Visit: Yes Status: Acute Assessment and Plan: Patient presents with history of increased frequency of falls Suspect secondary to patient's chronic alcohol dependence/abuse Due to frequent falls PT/OT was consulted with recommendations for detention facility placement for strengthening/conditioning; social worker clinical will assist with placement (3) Traumatic hematoma of right forearm Current Visit: Yes Status: Acute Assessment and Plan: Large right mid dorsum forearm mass concerning for hematoma. X-ray of the forearm shows prominent soft tissue density presumably reflecting hematoma/contusion. Surgery with recommendations for medical management as no surgical intervention warranted at this time (4) Thrombocytopenia Current Visit: Yes Status: Acute Assessment and Plan: Thrombocytopenia secondary to liver cirrhosis Continue to monitor for active bleeding and also monitor hematoma on right forearm. (5) Hyperbilirubinemia Current Visit: Yes Status: Acute Assessment and Plan: Hyperbilirubinemia in the setting of liver cirrhosis. GI consulted and appreciate recommendations DVT Prophylaxis: SCDs - Time Spent with Patient Total time spent is greater than 50% in coordination of care (as documented) at patient's floor/unit and/or counseling patient: Internal Medicine: Result - Labs CBC & Chem 7: 07/06/18 06:16 07/06/18 06:16 - ABG Interpretation ABG results: PT/INR, D-dimer PT 14.2 Seconds (9.4-12.1) H 07/01/18 07:01 Consult Discharge Plan - Plan Referrals: Deshaun Marc MD [Primary Care Provider] - (2) Fall Qualifiers: Encounter type: initial encounter Qualified Code(s): W19.XXXA - Unspecified fall, initial encounter
[2018-07-08] MEDS: FLUoxetine HCl 10 MG CAPSULE PO SCH (09:18)
[2018-07-08] MEDS: Spironolactone 25 MG TABLET PO SCH (09:18)
[2018-07-08] MEDS: Thiamine (B-1) 100 MG TABLET PO SCH (09:19)
[2018-07-08] MEDS: Fluticasone Propionate Nasal 50 MCG/SPRAY BOTTLE NS SCH (09:19)
[2018-07-08] MEDS: Loratadine 10 MG TABLET PO SCH (09:19)
[2018-07-08] MEDS: Folic Acid 1 MG TABLET PO SCH (09:19)
[2018-07-08 11:46] VITALS: BP 129/83
--- NOTE | 2018-07-08 13:58 | Discharge Summary ---
- NOTES TO OUTPATIENT PROVIDER Notes to Outpatient Provider: Please follow up on CBC, basic panel in 1 week Date of Encounter: 07/08/18 Time of Encounter: 13:56 - Discharge Diagnosis (1) Fall Priority: Primary Status: Acute Qualifiers: Encounter type: initial encounter Qualified Code(s): W19.XXXA - Unspecified fall, initial encounter (2) Alcohol abuse Priority: Secondary Status: Acute (3) Thrombocytopenia Priority: Secondary Status: Acute (4) Traumatic hematoma of right forearm Priority: Secondary Status: Acute Encounter type: initial encounter (5) Hyperbilirubinemia Priority: Secondary Status: Acute Hospital course: Mr. Mathews is a 58 year old male patient with a history of chronic alcohol abuse was Patient was hospitalized here with recurrent falls. He was treated for alcohol withdrawal and required Ativan and Precedex drip to help treat his withdrawal symptoms and delirium. He was also noted to have a traumatic hematoma of right forearm which was evaluated by surgery and recommended monitoring. His withdrawal symptoms eventually subsided and he was transferred to [facility] floor. Since then his been doing well. He was evaluated by physical therapy and recommended placement to skilled rehabilitation initially. He has continued to work with physical therapy here and at this point he would instead like to go home with home health. This will be arranged. He will follow up with his PCP for further management. He has been placed on nadolol and spironolactone and taken off atenolol due to his cirrhosis. Discharge discussed with: patient - Time Spent with Patient Total time spent providing and/or coordinating discharge services: Time spent: Greater than 30 minutes (45 min) - Discharge Medications Prescriptions: New Nadolol [Corgard] 20 mg PO DAILY #30 tablet Spironolactone [Aldactone] 25 mg PO DAILY #30 tablet Multivit with Iron,Minerals [Spectravite Senior] 1 each PO DAILY #30 tablet Lactulose [Enulose] 10 gm PO TID PRN #500 mls PRN Reason: Constipation Continued Loratadine [Claritin] 10 mg PO DAILY Fluticasone Propionate Nasal [Flonase] 2 spray IN BID Naltrexone HCl 25 mg PO DAILY FLUoxetine HCl [Sarafem] 10 mg PO DAILY Sennosides/Docusate Sodium [Cvs Stool Softener-Laxative Tb] 1 tab PO BID PRN PRN Reason: Constipation Discontinued Atenolol [Tenormin] 25 mg PO DAILY Home Medications: Fluticasone Propionate Nasal [Flonase] 2 spray IN BID 06/25/18 [History] Loratadine [Claritin] 10 mg PO DAILY 06/25/18 [History] FLUoxetine HCl [Sarafem] 10 mg PO DAILY 07/01/18 [History] Naltrexone HCl 25 mg PO DAILY 07/01/18 [History] Sennosides/Docusate Sodium [Cvs Stool Softener-Laxative Tb] 1 tab PO BID PRN 07/01/18 [History] Lactulose [Enulose] 10 gm PO TID PRN #500 mls 07/08/18 [Rx] Multivit with Iron,Minerals [Spectravite Senior] 1 each PO DAILY #30 tablet 07/08/18 [Rx] Nadolol [Corgard] 20 mg PO DAILY #30 tablet 07/08/18 [Rx] Spironolactone [Aldactone] 25 mg PO DAILY #30 tablet 07/08/18 [Rx] Allergies/Adverse Reactions: Allergy/AdvReac Type Severity Reaction Status Date / Time No Known Allergies Allergy Verified 11/21/16 08:59 Date of admission: 07/02/18 19:39 Primary care physician: Deshaun Marc Consults: 06/30/18 18:13 Consult to Risk Management Director [CONS] Stat Reason for SW Consult: falls, ETOH 06/30/18 20:21 Consult to Surgery [CONS] Routine Consulting Provider: Surgery [facility] Reason for Consult: Right forearm hematoma Call Completed: Yes 06/30/18 20:22 Consult to Gastroenterology [CONS] Routine Consulting Provider: Gastroenterology Agatha Reason for Consult: History of liver cirrhosis and grade 1 esophageal varices presents with elevated total bilirubin Call Completed: No 07/02/18 18:35 Consult to Occupational Therapy [CONS] Routine Comment: Evaluate, develop and implement POC Reason for Consult: Multiple falls/home safety Does patient have active BEDREST order?: No Is patient medically & hemodynamically stable?: Yes Patient assessed for mobility or mobilized this visit?: No Consult to Physical Therapy [CONS] Routine Comment: Evaluate, develop and implement POC Reason for Consult: Multiple falls/home safety Does patient have active BEDREST order?: No Is patient medically & hemodynamically stable?: Yes Patient assessed for mobility or mobilized this visit?: No Discharging clinician: Marty Walker Anticipated date of discharge: 07/08/18 - Constitutional Vitals: Temp Pulse Resp BP Pulse Ox 98.4 F 78 16 129/83 97 07/08/18 09:41 07/08/18 09:41 07/08/18 09:41 07/08/18 09:41 07/08/18 09:41 General appearance: Present: cooperative, A&O X 3, pleasant, no acute distress, answers questions appropriately Exam: General: Patient is alert, no acute distress, oriented x 3 Respiratory: Good respiratory effort. Normal breath sounds. No wheezing or crackles. Cardiovascular: Regular rate and rhythm. s1 and s2 normal No clicks, rubs, gallops, or murmurs. No pedal edema Abdomen: Abdomen is soft, nontender. Bowel sounds are present Musculoskeletal: Spontaneously moving all extremities - Patient Status Disposition: Home Health Service Condition: Good Functional capacity at discharge: independent ambulation Overall status at discharge: patient is progressing back to baseline - Discharge Instructions Follow Up With: Deshaun Marc MD [Primary Care Provider] - (in 1-2 weeks) - Diet and Activity Activity: as per physical therapy, increase activity as tolerated Diet: advance to your usual diet, low salt diet
--- NOTE | 2018-07-08 14:16 | Physician Discharge Referral ---
Home Health/Hosp Referral Info Transfer to: Home Health Provider in Charge Post Discharge: PCP - Diagnosis (1) Fall Priority: Primary Status: Acute (2) Alcohol abuse Priority: Secondary Status: Acute (3) Thrombocytopenia Priority: Secondary Status: Acute (4) Traumatic hematoma of right forearm Priority: Secondary Status: Acute (5) Hyperbilirubinemia Priority: Secondary Status: Acute - Respiratory Orders Smoking Cessation: Smoking cessation has been advised. For more information, call the [place] Tobacco Quit Line at 3-759-BAVE-NOW. - Diet/Nutrition Diet/Nutrition Orders: Cardiac - Activity Activity Orders: Ambulate (with assist) - Services Needed Following services are medically necessary services: Nursing, Physical Therapy, Occupational Therapy Home Care Orders: Please check CBC, basic panel in 1 week - Transfer Medications Prescriptions: Spironolactone [Aldactone] 25 mg PO DAILY #30 tablet Nadolol [Corgard] 20 mg PO DAILY #30 tablet Lactulose [Enulose] 10 gm PO TID PRN #500 mls PRN Reason: Constipation Multivit with Iron,Minerals [Spectravite Senior] 1 each PO DAILY #30 tablet Home Medications: Fluticasone Propionate Nasal [Flonase] 2 spray IN BID 06/25/18 [History] Loratadine [Claritin] 10 mg PO DAILY 06/25/18 [History] FLUoxetine HCl [Sarafem] 10 mg PO DAILY 07/01/18 [History] Naltrexone HCl 25 mg PO DAILY 07/01/18 [History] Sennosides/Docusate Sodium [Cvs Stool Softener-Laxative Tb] 1 tab PO BID PRN 07/01/18 [History] Lactulose [Enulose] 10 gm PO TID PRN #500 mls 07/08/18 [Rx] Multivit with Iron,Minerals [Spectravite Senior] 1 each PO DAILY #30 tablet 07/08/18 [Rx] Nadolol [Corgard] 20 mg PO DAILY #30 tablet 07/08/18 [Rx] Spironolactone [Aldactone] 25 mg PO DAILY #30 tablet 07/08/18 [Rx] Allergies/Adverse Reactions: Allergy/AdvReac Type Severity Reaction Status Date / Time No Known Allergies Allergy Verified 11/21/16 08:59 Certification: Further, I certify that my clinical findings support that this patient is homebound (i.e. absences from home require considerable and taxing effort and are for medical reasons or oriental orthodox services or infrequently or short duration when for other reasons) because: Homebound Reason: Patient requires assistance of a person or device to safely leave home Attestation: My signature below is to certify that this patient is under my care and that I, or nurse practitioner, or a physician's server service assistant working with me, has a [id number] encounter with this patient.
== END 2018-07-08 15:34 | disposition home health service (06) | DRG 384 ==
LOC: 2ANU 15:51 → EMEROOARM 15:51 → SUATTDRO 19:48 → 2ANU 20:46 → ICNU 07-01 10:38 → 2NNU 07-01 15:25 → SUATTDRO 07-02 19:39 → 3NENU 07-03 18:33
PROVIDERS: ADMIT Internal Medicine; ATTEND Internal Medicine

== ENCOUNTER 2018-09-06 19:42 | Observation (INO) ==
[2018-09-06 20:53] LABS: Immature Granulocytes % 0.2 % (0-4)
[2018-09-06 20:54] LABS: Basophils % 0.2 %; Eosinophils # 0.1 K/mcL (0.0-0.6); Eosinophils % 2.2 %; Hematocrit 36.9 % (37.5-50.1); Hemoglobin 13.5 g/dL (12.9-16.9); Immature Platelets 5.4 % (1.1-6.1); Lymphocytes % 27.8 %; Mean Corpuscular HGB Conc 36.6 g/dL (31.6-35.5); Mean Corpuscular Hemoglobin 35.8 pg (28.0-33.3); Mean Corpuscular Volume 97.9 fL (83.0-100.0); Mean Platelet Volume 9.8 fL (9.4-12.4); Monocytes # 0.4 K/mcL (0.0-1.3); Monocytes % 9.7 %; Neutrophils # 2.5 K/mcL (1.6-8.9); Red Blood Count 3.77 M/mcL (4.19-5.50); Red Cell Distribution Width 12.5 % (11.5-14.5); Segmented Neutrophils % 59.9 %; White Blood Count 4.1 K/mcL (4.3-11.1)
[2018-09-06 20:55] LABS: Lymphocytes # 1.1 K/mcL (0.6-4.6)
[2018-09-06 20:56] LABS: Platelet Count 66 K/mcL (140-400)
[2018-09-06 21:00] LABS: INR 1.2; Prothrombin Time 13.5 Seconds (9.4-12.1)
[2018-09-06 21:02] LABS: Activated Partial Thrombo Time 37.7 Seconds (26.0-36.0)
[2018-09-06 21:13] LABS: Alanine Aminotransferase 20 Units/L (7-52); Albumin 3.5 g/dL (3.5-5.7); Albumin/Globulin Ratio 0.9 (1.1-2.2); Alkaline Phosphatase 148 Units/L (34-104); Aspartate Amino Transferase 72 Units/L (13-39); BUN/Creatinine Ratio 7 (6-26); Bilirubin,Direct 0.7 mg/dL (0.0-0.2); Bilirubin,Indirect 1.2 mg/dL (0.0-1.2); Bilirubin,Total 1.9 mg/dL (0.3-1.0); Blood Urea Nitrogen 4 mg/dL (8-23); Calcium 8.3 mg/dL (8.6-10.3); Carbon Dioxide 22 mEq/L (23-29); Chloride 95 mEq/L (98-107); Ethanol 351 mg/dL (Less than 10); Globulin 3.9 g/dL (2.4-3.5); Glucose 93 mg/dL (70-105); Magnesium 1.8 mg/dL (1.6-2.6); Osmolality,Calculated 261 (280-300); Potassium 3.9 mEq/L (3.5-5.1); Sodium 127 mEq/L (136-145); Total Protein 7.4 g/dL (6.4-8.9); eGFR For African Americans > 60 (> 60); eGFR For Non-African Americans > 60 (> 60)
[2018-09-07] MEDS ORDERED: *HR* LORazepam 2 MG/ML VIAL IVP PRN ×4 (05:20→11:56)
[2018-09-07] MEDS ORDERED: Naloxone 0.4 MG/ML INJ IVP PRN (05:20)
[2018-09-07] MEDS ORDERED: *HR* Promethazine 25 MG/ML VIAL IVP PRN (05:20)
[2018-09-07] MEDS ORDERED: Sennosides/Docusate Sodium TABLET PO PRN (05:26)
[2018-09-07] MEDS ORDERED: Lactulose Oral Soln 20 GM/30 ML UDC PO PRN (05:26)
[2018-09-07] MEDS ORDERED: NALTREXONE HCL PO SCH (09:00)
[2018-09-07] MEDS: Loratadine 10 MG TABLET PO SCH (09:30)
[2018-09-07] MEDS: Thiamine (B-1) 100 MG, Folic Acid 1 MG, MVI, adult with vitamin K 10 ML in 0.9 % Sodi... IVPB SCH (17:27)
[2018-09-08 06:36] LABS: Basophils % 0.8 %; Immature Granulocytes % 0.3 % (0-4); Monocytes % 19.9 %; Red Blood Count 3.64 M/mcL (4.19-5.50)
[2018-09-08 06:38] LABS: Eosinophils # 0.1 K/mcL (0.0-0.6); Eosinophils % 2.2 %; Hematocrit 36.7 % (37.5-50.1); Hemoglobin 12.7 g/dL (12.9-16.9); Immature Platelets 5.2 % (1.1-6.1); Mean Corpuscular HGB Conc 34.6 g/dL (31.6-35.5); Mean Corpuscular Hemoglobin 34.9 pg (28.0-33.3); Mean Corpuscular Volume 100.8 fL (83.0-100.0); Mean Platelet Volume 10.6 fL (9.4-12.4); Monocytes # 0.7 K/mcL (0.0-1.3); Neutrophils # 1.8 K/mcL (1.6-8.9); Red Cell Distribution Width 12.9 % (11.5-14.5); Segmented Neutrophils % 49.8 %; White Blood Count 3.7 K/mcL (4.3-11.1)
[2018-09-08 06:42] LABS: Platelet Count 56 K/mcL (140-400)
[2018-09-08 06:47] LABS: INR 1.3; Prothrombin Time 14.9 Seconds (9.4-12.1)
[2018-09-08 06:50] LABS: Activated Partial Thrombo Time 36.2 Seconds (26.0-36.0)
[2018-09-08 06:59] LABS: Alanine Aminotransferase 17 Units/L (7-52); Albumin/Globulin Ratio 0.8 (1.1-2.2); Alkaline Phosphatase 163 Units/L (34-104); Aspartate Amino Transferase 54 Units/L (13-39); BUN/Creatinine Ratio 13 (6-26); Bilirubin,Total 2.8 mg/dL (0.3-1.0); Blood Urea Nitrogen 8 mg/dL (8-23); Calcium 8.7 mg/dL (8.6-10.3); Carbon Dioxide 27 mEq/L (23-29); Chloride 99 mEq/L (98-107); Globulin 3.8 g/dL (2.4-3.5); Glucose 92 mg/dL (70-105); Magnesium 1.8 mg/dL (1.6-2.6); Osmolality,Calculated 276 (280-300); Potassium 3.7 mEq/L (3.5-5.1); Sodium 134 mEq/L (136-145); Total Protein 6.8 g/dL (6.4-8.9); eGFR For African Americans > 60 (> 60); eGFR For Non-African Americans > 60 (> 60)
[2018-09-08 08:49] LABS: Platelet Estimate Decreased (Normal)
[2018-09-08] MEDS ORDERED: NALTREXONE HCL PO SCH (09:00)
[2018-09-08] MEDS: Loratadine 10 MG TABLET PO SCH (10:08)
[2018-09-08] MEDS: Thiamine (B-1) 100 MG, Folic Acid 1 MG, MVI, adult with vitamin K 10 ML in 0.9 % Sodi... IVPB SCH (18:19)
[2018-09-08] MEDS: *HR* Heparin 5,000 UNIT/ML VIAL SQ SCH (20:17)
[2018-09-09] MEDS: *HR* Heparin 5,000 UNIT/ML VIAL SQ SCH (05:23)
[2018-09-09 07:00] LABS: Immature Granulocytes % 0.3 % (0-4); Red Blood Count 3.31 M/mcL (4.19-5.50); Red Cell Distribution Width 12.7 % (11.5-14.5); Segmented Neutrophils % 45.2 %
[2018-09-09 07:02] LABS: Basophils % 0.8 %; Eosinophils # 0.1 K/mcL (0.0-0.6); Eosinophils % 3.9 %; Hematocrit 33.3 % (37.5-50.1); Hemoglobin 11.7 g/dL (12.9-16.9); Immature Platelets 5.2 % (1.1-6.1); Lymphocytes % 34.6 %; Mean Corpuscular HGB Conc 35.1 g/dL (31.6-35.5); Mean Corpuscular Hemoglobin 35.3 pg (28.0-33.3); Mean Corpuscular Volume 100.6 fL (83.0-100.0); Mean Platelet Volume 10.4 fL (9.4-12.4); Monocytes # 0.6 K/mcL (0.0-1.3); Monocytes % 15.2 %; Neutrophils # 1.6 K/mcL (1.6-8.9); White Blood Count 3.6 K/mcL (4.3-11.1)
[2018-09-09 07:03] LABS: Lymphocytes # 1.3 K/mcL (0.6-4.6); Platelet Count 60 K/mcL (140-400)
[2018-09-09 07:16] LABS: BUN/Creatinine Ratio 13 (6-26); Blood Urea Nitrogen 8 mg/dL (8-23); Calcium 8.6 mg/dL (8.6-10.3); Carbon Dioxide 28 mEq/L (23-29); Chloride 97 mEq/L (98-107); Glucose 91 mg/dL (70-105); Magnesium 1.6 mg/dL (1.6-2.6); Osmolality,Calculated 274 (280-300); Phosphorous 3.5 mg/dL (2.7-4.5); Potassium 3.6 mEq/L (3.5-5.1); Sodium 133 mEq/L (136-145); eGFR For African Americans > 60 (> 60); eGFR For Non-African Americans > 60 (> 60)
[2018-09-09] MEDS ORDERED: Spironolactone 25 MG TABLET PO SCH (09:00)
[2018-09-09] MEDS: Loratadine 10 MG TABLET PO SCH (09:56)
[2018-09-09 11:09] VITALS: BP 144/71
[2018-09-10] MEDS ORDERED: Folic Acid 1 MG TABLET PO SCH (09:00)
[2018-09-10] MEDS ORDERED: Multivit/Ca/Min/Fe/FA 1 TAB TABLET PO SCH (09:00)
[2018-09-10] MEDS ORDERED: Thiamine (B-1) 100 MG TABLET PO SCH (09:00)
== END 2018-09-09 12:36 | disposition home or self-care (01) ==
LOC: EMEROOARM 19:42 → 2ANU 19:42 → SUATTDRO 23:25 → 2ANU 09-07
PROVIDERS: ADMIT Pediatrics; ATTEND Internal Medicine

== ENCOUNTER 2019-02-12 21:00 | Inpatient (IN) ==
[2019-02-12] MEDS ORDERED: 0.9 % Sodium Chloride 1,000 ML IVC ONE (21:12)
[2019-02-12] MEDS ORDERED: Ondansetron 4 MG/2 ML VIAL IVP ONE (21:12)
[2019-02-12] MEDS ORDERED: Morphine Sulfate 2 MG/ML SYRINGE IVP STA (21:13)
[2019-02-12 21:52] LABS: Basophils % 0.5 %; Hemoglobin 14.2 g/dL (12.9-16.9); Mean Corpuscular Volume 102.8 fL (83.0-100.0)
[2019-02-12 21:54] LABS: Eosinophils # 0.1 K/mcL (0.0-0.6); Eosinophils % 3.1 %; Hematocrit 40.1 % (37.5-50.1); Immature Granulocytes % 0.3 % (0-4); Immature Platelets 5.1 % (1.1-6.1); Lymphocytes % 25.4 %; Mean Corpuscular HGB Conc 35.4 g/dL (31.6-35.5); Mean Corpuscular Hemoglobin 36.4 pg (28.0-33.3); Monocytes # 0.6 K/mcL (0.0-1.3); Neutrophils # 2.1 K/mcL (1.6-8.9); Red Cell Distribution Width 13.5 % (11.5-14.5); Segmented Neutrophils % 54.7 %; White Blood Count 3.8 K/mcL (4.3-11.1)
[2019-02-12 21:55] LABS: Platelet Count 60 K/mcL (140-400)
[2019-02-12 21:57] LABS: INR 1.1; Prothrombin Time 12.7 Seconds (9.4-12.1)
[2019-02-12 21:59] LABS: Activated Partial Thrombo Time 35.7 Seconds (26.0-36.0)
[2019-02-12 22:13] LABS: Alanine Aminotransferase 19 Units/L (7-52); Albumin 3.5 g/dL (3.5-5.7); Albumin/Globulin Ratio 0.9 (1.1-2.2); Alkaline Phosphatase 153 Units/L (34-104); Aspartate Amino Transferase 37 Units/L (13-39); BUN/Creatinine Ratio 8 (6-26); Bilirubin,Direct 0.4 mg/dL (0.0-0.2); Bilirubin,Indirect 1.1 mg/dL (0.0-1.0); Bilirubin,Total 1.5 mg/dL (0.3-1.0); Blood Urea Nitrogen 6 mg/dL (8-23); Calcium 9.2 mg/dL (8.6-10.3); Carbon Dioxide 26 mEq/L (23-29); Chloride 99 mEq/L (98-107); Ethanol < 10 mg/dL (Less than 10); Glucose 83 mg/dL (70-105); Magnesium 1.8 mg/dL (1.6-2.6); Osmolality,Calculated 275 (280-300); Potassium 4.1 mEq/L (3.5-5.1); Sodium 134 mEq/L (136-145); Total Protein 7.5 g/dL (6.4-8.9); eGFR For African Americans > 60 (> 60); eGFR For Non-African Americans > 60 (> 60)
[2019-02-12] MEDS ORDERED: Ketamine *HR* 14 MG in 0.9 % Sodium Chloride 100 ML IVPB ONE (22:17)
[2019-02-12 22:49] LABS: Bilirubin,Urine Negative (Negative); Blood,Urine Moderate (Negative); Clarity,Urine Clear (Clear); Color,Urine Yellow (Yellow); Glucose,Urine (UA) Normal (Normal); Ketones,Urine Negative (Negative); Leukocyte Esterase,Urine Negative (Negative); Nitrite,Urine Negative (Negative); Protein,Urine Negative (Neg-Trace); Specific Gravity,Urine 1.007 (1.010-1.025); Urobilinogen,Urine Normal (Normal)
[2019-02-12 22:52] LABS: Bacteria,Urine None Seen per hpf (None-Few); Hyaline Casts,Urine None Seen per lpf (None-Few); RBC,Urine 0-3 per hpf (0-3); Squamous Epithelial Cell,Urine Few per lpf (None-Few); WBC,Urine 0-3 per hpf (0-3)
[2019-02-12 23:32] LABS: Amphetamine Screen,Urine Negative ng/mL (Cutoff=1000); Barbiturate Screen,Urine Negative ng/mL (Cutoff=200); Benzodiazepines Screen,Urine Positive ng/mL (Cutoff=200); Cannabinoid Screen,Urine Positive ng/mL (Cutoff = 50); Cocaine Screen,Urine Negative ng/mL (Cutoff= 300); Opiate Screen,Urine Negative ng/mL (Cutoff=300); Phencyclidine Screen,Urine Negative ng/mL (Cutoff=25)
[2019-02-13] MEDS ORDERED: Ondansetron 4 MG/2 ML VIAL IVP PRN (01:50)
[2019-02-13] MEDS ORDERED: Naloxone 0.4 MG/ML INJ IVP PRN (01:50)
[2019-02-13] MEDS ORDERED: Ibuprofen 400 MG TABLET PO PRN (01:50)
[2019-02-13] MEDS ORDERED: *HR* LORazepam 2 MG/ML VIAL IVP PRN ×2 (02:08)
[2019-02-13] MEDS: 0.9 % Sodium Chloride 1,000 ML IVC SCH ×2 (02:21→16:38)
[2019-02-13] MEDS: *HR* LORazepam 2 MG/ML VIAL IVP PRN ×3 (02:26→10:24)
[2019-02-13] MEDS ORDERED: Ketorolac 15 MG/ML VIAL IVP ONE (02:48)
[2019-02-13 02:52] LABS: Hemoglobin 13.7 g/dL (12.9-16.9); Mean Platelet Volume 9.8 fL (9.4-12.4); Red Cell Distribution Width 13.4 % (11.5-14.5)
[2019-02-13 02:54] LABS: Hematocrit 38.3 % (37.5-50.1); Immature Platelets 3.8 % (1.1-6.1); Mean Corpuscular HGB Conc 35.8 g/dL (31.6-35.5); Mean Corpuscular Hemoglobin 36.4 pg (28.0-33.3); Mean Corpuscular Volume 101.9 fL (83.0-100.0); Red Blood Count 3.76 M/mcL (4.19-5.50); White Blood Count 3.6 K/mcL (4.3-11.1)
[2019-02-13 03:06] LABS: BUN/Creatinine Ratio 7 (6-26); Blood Urea Nitrogen 5 mg/dL (8-23); Calcium 8.5 mg/dL (8.6-10.3); Carbon Dioxide 28 mEq/L (23-29); Chloride 104 mEq/L (98-107); Chol/HDL Ratio 3.1 (0-4.9); Cholesterol 175 mg/dL (< 200); Glucose 107 mg/dL (70-105); HDL Cholesterol 56 mg/dL (40-59); LDL Cholesterol,Calculated 107 mg/dL (0-99); Osmolality,Calculated 286 (280-300); Phosphorous 2.5 mg/dL (2.7-4.5); Potassium 3.5 mEq/L (3.5-5.1); Sodium 139 mEq/L (136-145); Triglycerides 61 mg/dL (< 150); eGFR For African Americans > 60 (> 60); eGFR For Non-African Americans > 60 (> 60)
[2019-02-13 03:08] LABS: Amylase 32 Units/L (29-103); Lipase 25 Units/L (11-82)
[2019-02-13] MEDS ORDERED: Folic Acid 1 MG TABLET PO SCH (09:00)
[2019-02-13] MEDS ORDERED: Thiamine (B-1) 100 MG TABLET PO SCH (09:00)
[2019-02-13] MEDS ORDERED: Vitamin B Complex/Vit C/Vit E 1 EACH TABLET PO SCH (09:00)
[2019-02-13] MEDS ORDERED: Fluticasone Propionate Nasal 50 MCG/SPRAY BOTTLE NS SCH (21:00)
[2019-02-13] MEDS: Lactulose Oral Soln 20 GM/30 ML UDC PO PRN (21:02)
[2019-02-13] MEDS: Ketorolac 15 MG/ML VIAL IVP PRN (21:02)
[2019-02-14] MEDS: *HR* LORazepam 2 MG/ML VIAL IVP PRN ×2 (02:08→23:14)
[2019-02-14] MEDS: Ketorolac 15 MG/ML VIAL IVP PRN (04:41)
[2019-02-14 05:55] LABS: Hematocrit 34.2 % (37.5-50.1); Red Cell Distribution Width 13.2 % (11.5-14.5)
[2019-02-14 05:56] LABS: Hemoglobin 12.1 g/dL (12.9-16.9); Immature Platelets 3.4 % (1.1-6.1); Mean Corpuscular HGB Conc 35.4 g/dL (31.6-35.5); Mean Corpuscular Hemoglobin 36.1 pg (28.0-33.3); Mean Corpuscular Volume 102.1 fL (83.0-100.0); Mean Platelet Volume 9.4 fL (9.4-12.4); Red Blood Count 3.35 M/mcL (4.19-5.50); White Blood Count 3.4 K/mcL (4.3-11.1)
[2019-02-14 06:00] LABS: INR 1.2; Prothrombin Time 14.1 Seconds (9.4-12.1)
[2019-02-14] MEDS: Lactulose Oral Soln 20 GM/30 ML UDC PO PRN (06:09)
[2019-02-14] MEDS: 0.9 % Sodium Chloride 1,000 ML IVC SCH (06:10)
[2019-02-14 06:12] LABS: BUN/Creatinine Ratio 9 (6-26); Blood Urea Nitrogen 6 mg/dL (8-23); Calcium 8.1 mg/dL (8.6-10.3); Carbon Dioxide 24 mEq/L (23-29); Chloride 106 mEq/L (98-107); Glucose 86 mg/dL (70-105); Osmolality,Calculated 281 (280-300); Potassium 3.5 mEq/L (3.5-5.1); Sodium 137 mEq/L (136-145); eGFR For African Americans > 60 (> 60); eGFR For Non-African Americans > 60 (> 60)
[2019-02-14] MEDS ORDERED: *HR* Meperidine 25 MG/ML SYRINGE IVP PRN (07:12)
[2019-02-14] MEDS ORDERED: *HR* FentaNYL (PF) 100 MCG/2 ML VIAL IVP PRN (07:12)
[2019-02-14] MEDS ORDERED: *HR* HYDROmorphone (PF) 1 MG/ML SYRINGE IVP PRN (07:12)
[2019-02-14] MEDS ORDERED: *HR* OxyCODONE Immed Rel 5 MG TABLET PO PRN ×2 (07:12→10:44)
[2019-02-14] MEDS ORDERED: *HR* Promethazine 25 MG/ML VIAL IVP PRN ×2 (07:12→10:44)
[2019-02-14] MEDS ORDERED: *HR* Midazolam HCl 2 MG/2 ML VIAL IVP PRN ×2 (07:12→10:44)
[2019-02-14] MEDS ORDERED: *HR* Propofol 200 MG/20 ML VIAL IVP ONE (07:20)
[2019-02-14] MEDS ORDERED: *HR* Succinylcholine 200 MG/10 ML VIAL IVP ONE (07:24)
[2019-02-14] MEDS ORDERED: Lidocaine -MPF 2% 2 ML VIAL ONE (07:24)
[2019-02-14] MEDS ORDERED: *HR* Rocuronium Bromide 50 MG/5 ML VIAL ONE (07:24)
[2019-02-14] MEDS ORDERED: Lidocaine -MPF 4% 5 ML AMPUL ONE (07:27)
[2019-02-14] MEDS ORDERED: Dexamethasone 4 MG/ML VIAL ONE (07:27)
[2019-02-14] MEDS ORDERED: Ondansetron 4 MG/2 ML VIAL ONE (07:27)
[2019-02-14] MEDS ORDERED: Ethanol\\Acetic Acid\\Na Ace\\Ben 1,000 ML IRRIG.SOLN IR ONE (07:28)
[2019-02-14] MEDS ORDERED: Gabapentin 300 MG CAPSULE PO ONE ×2 (07:28→10:44)
[2019-02-14] MEDS ORDERED: Tranexamic Acid 1,000 MG/10 ML VIAL ONE (08:01)
[2019-02-14] MEDS ORDERED: CeFAZolin Syr 2,000MG/20 ML 2,000 MG/20 ML SYRINGE IVPB ONE (08:15)
[2019-02-14] MEDS ORDERED: *HR* FentaNYL (PF) 100 MCG/2 ML VIAL ONE (08:32)
[2019-02-14] MEDS ORDERED: NALTREXONE 50 MG PO SCH (09:00)
[2019-02-14] MEDS ORDERED: Loratadine 10 MG TABLET PO SCH (09:00)
[2019-02-14] MEDS ORDERED: FLUoxetine HCl 10 MG CAPSULE PO SCH (09:00)
[2019-02-14] MEDS ORDERED: Spironolactone 25 MG TABLET PO SCH (09:00)
[2019-02-14] MEDS ORDERED: *HR* PHENYLEPHRINE 1,000 MCG/10 ML SYRINGE IVP ONE (09:33)
[2019-02-14 09:54] LABS: Hematocrit 35.9 % (37.5-50.1); Hemoglobin 12.2 g/dL (12.9-16.9)
[2019-02-14] MEDS ORDERED: Ringers Solution, Lactated 1,000 ML IVC SCH (10:44)
[2019-02-14] MEDS ORDERED: Lactulose Oral Soln 20 GM/30 ML UDC PO PRN (10:44)
[2019-02-14] MEDS ORDERED: *HR* LORazepam 2 MG/ML VIAL IVP PRN ×2 (10:44)
[2019-02-14] MEDS ORDERED: Naloxone 0.4 MG/ML INJ IVP PRN ×2 (10:44)
[2019-02-14] MEDS ORDERED: MOM Conc 10 ML UD.LIQ PO PRN (10:44)
[2019-02-14] MEDS ORDERED: Temazepam 15 MG CAPSULE PO PRN (10:44)
[2019-02-14] MEDS ORDERED: Ondansetron 4 MG/2 ML VIAL IVP PRN (10:44)
[2019-02-14] MEDS ORDERED: Sennosides 8.6 MG TABLET PO PRN (10:44)
[2019-02-14] MEDS ORDERED: HYDROcodone BIT/Homatropine 5 MG TABLET PO PRN (10:44)
[2019-02-14] MEDS: Multivit/Ca/Min/Fe/FA 1 TAB TABLET PO SCH (11:46)
[2019-02-14] MEDS: Ascorbic Acid 500 MG TABLET PO SCH ×2 (11:46→16:00)
[2019-02-14] MEDS: Fluticasone Propionate Nasal 50 MCG/SPRAY BOTTLE NS SCH (23:06)
[2019-02-15 04:52] LABS: Basophils % 0.1 %; Hematocrit 28.4 % (37.5-50.1); Immature Granulocytes % 0.3 % (0-4); Mean Corpuscular HGB Conc 35.2 g/dL (31.6-35.5)
[2019-02-15 04:54] LABS: Immature Platelets 6.8 % (1.1-6.1); Lymphocytes # 0.8 K/mcL (0.6-4.6); Lymphocytes % 10.8 %; Mean Corpuscular Hemoglobin 36.1 pg (28.0-33.3); Mean Corpuscular Volume 102.5 fL (83.0-100.0); Mean Platelet Volume 10.9 fL (9.4-12.4); Monocytes # 1.2 K/mcL (0.0-1.3); Monocytes % 15.2 %; Neutrophils # 5.6 K/mcL (1.6-8.9); Red Blood Count 2.77 M/mcL (4.19-5.50); Segmented Neutrophils % 73.6 %; White Blood Count 7.6 K/mcL (4.3-11.1)
[2019-02-15 04:55] LABS: Platelet Count 72 K/mcL (140-400)
[2019-02-15 05:13] LABS: BUN/Creatinine Ratio 12 (6-26); Blood Urea Nitrogen 8 mg/dL (8-23); Calcium 7.8 mg/dL (8.6-10.3); Carbon Dioxide 25 mEq/L (23-29); Chloride 101 mEq/L (98-107); Glucose 102 mg/dL (70-105); Osmolality,Calculated 275 (280-300); Potassium 3.6 mEq/L (3.5-5.1); Sodium 133 mEq/L (136-145); eGFR For African Americans > 60 (> 60); eGFR For Non-African Americans > 60 (> 60)
[2019-02-15] MEDS: *HR* LORazepam 2 MG/ML VIAL IVP PRN ×2 (06:07→14:55)
[2019-02-15] MEDS ORDERED: Aspirin Enteric Coated 81 MG Tablet PO SCH (07:54)
[2019-02-15] MEDS: Folic Acid 1 MG TABLET PO SCH (08:37)
[2019-02-15] MEDS: Spironolactone 25 MG TABLET PO SCH (08:38)
[2019-02-15] MEDS: Loratadine 10 MG TABLET PO SCH (08:38)
[2019-02-15] MEDS: Thiamine (B-1) 100 MG TABLET PO SCH (08:38)
[2019-02-15] MEDS: Multivit/Ca/Min/Fe/FA 1 TAB TABLET PO SCH (08:38)
[2019-02-15] MEDS: Ascorbic Acid 500 MG TABLET PO SCH ×2 (08:38→16:19)
[2019-02-15] MEDS: Vitamin B Complex/Vit C/Vit E 1 EACH TABLET PO SCH (08:38)
[2019-02-15] MEDS ORDERED: FLUoxetine HCl 10 MG CAPSULE PO SCH (09:00)
[2019-02-15] MEDS: Fluticasone Propionate Nasal 50 MCG/SPRAY BOTTLE NS SCH ×2 (11:27→20:42)
[2019-02-15] MEDS: Naltrexone HCl 50 MG TABLET PO SCH (11:37)
[2019-02-15] MEDS ORDERED: Ondansetron ODT 4 MG TAB.RAPDIS PO PRN (13:55)
[2019-02-15] MEDS ORDERED: Melatonin 3 MG TABLET PO PRN (13:55)
[2019-02-15] MEDS ORDERED: hydrOXYzine pamoate 25 MG CAPSULE PO PRN (13:55)
[2019-02-16 01:40] LABS: Mean Platelet Volume 10.6 fL (9.4-12.4); Red Cell Distribution Width 12.9 % (11.5-14.5)
[2019-02-16 01:42] LABS: Hemoglobin 9.3 g/dL (12.9-16.9); Immature Platelets 5.8 % (1.1-6.1); Mean Corpuscular HGB Conc 35.8 g/dL (31.6-35.5); Mean Corpuscular Hemoglobin 35.9 pg (28.0-33.3); Mean Corpuscular Volume 100.4 fL (83.0-100.0); Red Blood Count 2.59 M/mcL (4.19-5.50); White Blood Count 6.6 K/mcL (4.3-11.1)
[2019-02-16 02:01] LABS: Alanine Aminotransferase 10 Units/L (7-52); Albumin 2.7 g/dL (3.5-5.7); Alkaline Phosphatase 92 Units/L (34-104); Aspartate Amino Transferase 29 Units/L (13-39); BUN/Creatinine Ratio 13 (6-26); Bilirubin,Total 1.9 mg/dL (0.3-1.0); Blood Urea Nitrogen 8 mg/dL (8-23); Calcium 7.8 mg/dL (8.6-10.3); Carbon Dioxide 27 mEq/L (23-29); Chloride 102 mEq/L (98-107); Globulin 2.8 g/dL (2.4-3.5); Glucose 110 mg/dL (70-105); Osmolality,Calculated 279 (280-300); Potassium 3.6 mEq/L (3.5-5.1); Sodium 135 mEq/L (136-145); Total Protein 5.5 g/dL (6.4-8.9); eGFR For African Americans > 60 (> 60); eGFR For Non-African Americans > 60 (> 60)
[2019-02-16] MEDS ORDERED: FLUoxetine HCl 10 MG CAPSULE PO SCH (09:00)
[2019-02-16] MEDS: Loratadine 10 MG TABLET PO SCH (10:38)
[2019-02-16] MEDS: Folic Acid 1 MG TABLET PO SCH (10:38)
[2019-02-16] MEDS: Thiamine (B-1) 100 MG TABLET PO SCH (10:38)
[2019-02-16] MEDS: Ascorbic Acid 500 MG TABLET PO SCH (10:38)
[2019-02-16] MEDS: Multivit/Ca/Min/Fe/FA 1 TAB TABLET PO SCH (10:39)
[2019-02-16] MEDS: Vitamin B Complex/Vit C/Vit E 1 EACH TABLET PO SCH (10:39)
[2019-02-16 12:08] VITALS: BP 160/87
[2019-02-16] MEDS: Naltrexone HCl 50 MG TABLET PO SCH (13:05)
[2019-02-16] MEDS: Fluticasone Propionate Nasal 50 MCG/SPRAY BOTTLE NS SCH (13:06)
[2019-02-16] MEDS: Spironolactone 25 MG TABLET PO SCH (13:06)
== END 2019-02-16 15:45 | DRG 301 ==
LOC: EMEROOARM 21:00 → 3NENU 21:00 → SUATTDRO 02-13 01:50
PROVIDERS: ADMIT Internal Medicine; ATTEND Internal Medicine

== ENCOUNTER 2020-03-20 10:29 | Observation (INO) ==
[2020-03-20] MEDS ORDERED: Isovue-370 500 ML BOTTLE IVP ONE (10:53)
[2020-03-20 11:11] LABS: Basophils % 0.3 %; Eosinophils # 0.1 K/mcL (0.0-0.6); Eosinophils % 2.1 %; Hematocrit 29.2 % (37.5-50.1); Hemoglobin 9.8 g/dL (12.9-16.9); Immature Granulocytes % 0.3 % (0-4); Lymphocytes # 0.9 K/mcL (0.6-4.6); Lymphocytes % 13.8 %; Mean Corpuscular HGB Conc 33.6 g/dL (31.6-35.5); Mean Corpuscular Hemoglobin 36.4 pg (28.0-33.3); Mean Corpuscular Volume 108.6 fL (83.0-100.0); Mean Platelet Volume 9.8 fL (9.4-12.4); Monocytes # 0.7 K/mcL (0.0-1.3); Monocytes % 10.1 %; Neutrophils # 4.8 K/mcL (1.6-8.9); Platelet Count 137 K/mcL (140-400); Red Blood Count 2.69 M/mcL (4.19-5.50); Red Cell Distribution Width 13.2 % (11.5-14.5); Segmented Neutrophils % 73.4 %; White Blood Count 6.5 K/mcL (4.3-11.1)
[2020-03-20 11:16] LABS: INR 1.5; Prothrombin Time 17.1 Seconds (9.4-12.1)
[2020-03-20] MEDS ORDERED: Thiamine (B-1) 200 MG in 0.9 % Sodium Chloride 50 ML IVPB ONE (11:16)
[2020-03-20] MEDS ORDERED: Folic Acid 1 MG in 0.9 % Sodium Chloride 50 ML IVPB ONE (11:16)
[2020-03-20 11:19] LABS: Activated Partial Thrombo Time 30.5 Seconds (26.0-36.0)
[2020-03-20] MEDS ORDERED: *HR* LORazepam 2 MG/ML VIAL IVP ONE (11:22)
[2020-03-20 11:24] LABS: Alanine Aminotransferase 12 Units/L (7-52); Albumin 2.6 g/dL (3.5-5.7); Albumin/Globulin Ratio 0.8 (1.1-2.2); Alkaline Phosphatase 148 Units/L (34-104); Aspartate Amino Transferase 30 Units/L (13-39); BUN/Creatinine Ratio 5 (6-26); Bilirubin,Direct 1.9 mg/dL (0.0-0.2); Bilirubin,Indirect 3.2 mg/dL (0.0-1.0); Bilirubin,Total 5.1 mg/dL (0.3-1.0); Blood Urea Nitrogen 3 mg/dL (8-23); Calcium 7.9 mg/dL (8.6-10.3); Carbon Dioxide 23 mEq/L (23-29); Chloride 97 mEq/L (98-107); Globulin 3.1 g/dL (2.4-3.5); Glucose 94 mg/dL (70-105); Osmolality,Calculated 262 (280-300); Potassium 3.4 mEq/L (3.5-5.1); Sodium 128 mEq/L (136-145); Total Protein 5.7 g/dL (6.4-8.9); eGFR For African Americans > 60 (> 60); eGFR For Non-African Americans > 60 (> 60)
[2020-03-20] MEDS ORDERED: Naloxone 0.4 MG/ML INJ IVP PRN (14:38)
[2020-03-20] MEDS ORDERED: Ondansetron ODT 4 MG TAB.RAPDIS SL PRN (14:38)
[2020-03-20] MEDS ORDERED: Lactulose Oral Soln 20 GM/30 ML UDC PO PRN (14:43)
[2020-03-20] MEDS: ACAMPROSATE CALCIUM 333 MG PO SCH ×2 (15:33→21:01)
[2020-03-20 18:14] LABS: Hematocrit 25.3 % (37.5-50.1); Hemoglobin 8.6 g/dL (12.9-16.9)
[2020-03-20 18:53] LABS: Source,Synovial Fluid RIGHT HIP FLUID
[2020-03-20 19:47] LABS: Appearance,Synovial Fluid Cloudy (Clear-Hazy); Color,Synovial Fluid Red (Straw)
[2020-03-20] MEDS: *HR* OxyCODONE Immed Rel 5 MG TABLET PO PRN (21:22)
[2020-03-20] MEDS ORDERED: *HR* LORazepam 2 MG/ML VIAL IVP PRN (22:56)
[2020-03-20] MEDS ORDERED: Lactulose Oral Soln 20 GM/30 ML UDC PO ONE (23:00)
[2020-03-21] MEDS: *HR* LORazepam 2 MG/ML VIAL IVP PRN ×4 (02:30→15:32)
[2020-03-21] MEDS ORDERED: Lactulose Oral Soln 20 GM/30 ML UDC PO ONE (03:39)
[2020-03-21 04:24] LABS: Basophils % 0.2 %; Eosinophils # 0.1 K/mcL (0.0-0.6); Eosinophils % 2.2 %; Hematocrit 26.1 % (37.5-50.1); Hemoglobin 8.7 g/dL (12.9-16.9); Immature Granulocytes % 0.2 % (0-4); Lymphocytes # 1.1 K/mcL (0.6-4.6); Lymphocytes % 17.3 %; Mean Corpuscular HGB Conc 33.3 g/dL (31.6-35.5); Mean Corpuscular Hemoglobin 35.8 pg (28.0-33.3); Mean Corpuscular Volume 107.4 fL (83.0-100.0); Mean Platelet Volume 9.9 fL (9.4-12.4); Monocytes # 0.8 K/mcL (0.0-1.3); Monocytes % 12.7 %; Neutrophils # 4.4 K/mcL (1.6-8.9); Platelet Count 155 K/mcL (140-400); Red Blood Count 2.43 M/mcL (4.19-5.50); Red Cell Distribution Width 13.2 % (11.5-14.5); Segmented Neutrophils % 67.4 %; White Blood Count 6.5 K/mcL (4.3-11.1)
[2020-03-21 04:41] LABS: % Iron Saturation 32 % (20-55); Alanine Aminotransferase 13 Units/L (7-52); Albumin 2.4 g/dL (3.5-5.7); Albumin/Globulin Ratio 0.8 (1.1-2.2); Alkaline Phosphatase 152 Units/L (34-104); Aspartate Amino Transferase 29 Units/L (13-39); BUN/Creatinine Ratio 9 (6-26); Bilirubin,Total 4.6 mg/dL (0.3-1.0); Blood Urea Nitrogen 5 mg/dL (8-23); Calcium 7.9 mg/dL (8.6-10.3); Carbon Dioxide 25 mEq/L (23-29); Chloride 101 mEq/L (98-107); Globulin 2.9 g/dL (2.4-3.5); Glucose 74 mg/dL (70-105); Iron 50 mcg/dL (65-175); Osmolality,Calculated 270 (280-300); Potassium 3.5 mEq/L (3.5-5.1); Sodium 132 mEq/L (136-145); Total Protein 5.3 g/dL (6.4-8.9); Transferrin 113 mg/dL (203-362); eGFR For African Americans > 60 (> 60); eGFR For Non-African Americans > 60 (> 60)
[2020-03-21 05:05] LABS: Folate 14.4 ng/mL (3.0-16.0)
[2020-03-21 05:07] LABS: Vitamin B12 > 1500 pg/mL (250-1100)
[2020-03-21] MEDS: *HR* OxyCODONE Immed Rel 5 MG TABLET PO PRN (05:36)
[2020-03-21] MEDS: ACAMPROSATE CALCIUM 333 MG PO SCH ×2 (07:24→10:18)
[2020-03-21] MEDS: Spironolactone 25 MG TABLET PO SCH (07:41)
[2020-03-21] MEDS: D10% in Water 500 ML IVC SCH ×2 (08:30→18:13)
[2020-03-21] MEDS: Lactulose Oral Soln 20 GM/30 ML UDC PO SCH (21:36)
[2020-03-22 05:04] LABS: Basophils % 0.4 %; Eosinophils # 0.2 K/mcL (0.0-0.6); Eosinophils % 2.9 %; Hemoglobin 8.5 g/dL (12.9-16.9); Immature Granulocytes % 0.7 % (0-4); Lymphocytes # 0.8 K/mcL (0.6-4.6); Mean Corpuscular Hemoglobin 35.9 pg (28.0-33.3); Mean Corpuscular Volume 105.5 fL (83.0-100.0); Mean Platelet Volume 9.4 fL (9.4-12.4); Monocytes # 0.7 K/mcL (0.0-1.3); Monocytes % 11.9 %; Neutrophils # 3.8 K/mcL (1.6-8.9); Nucleated Red Blood Cells 0.4 /100 WBC (0); Platelet Count 116 K/mcL (140-400); Red Blood Count 2.37 M/mcL (4.19-5.50); Red Cell Distribution Width 13.1 % (11.5-14.5); Segmented Neutrophils % 69.1 %; White Blood Count 5.5 K/mcL (4.3-11.1)
[2020-03-22] MEDS: D10% in Water 500 ML IVC SCH ×2 (05:21→16:19)
[2020-03-22 05:24] LABS: Alanine Aminotransferase 10 Units/L (7-52); Albumin 2.2 g/dL (3.5-5.7); Albumin/Globulin Ratio 0.8 (1.1-2.2); Alkaline Phosphatase 142 Units/L (34-104); Aspartate Amino Transferase 28 Units/L (13-39); BUN/Creatinine Ratio 9 (6-26); Bilirubin,Total 4.2 mg/dL (0.3-1.0); Blood Urea Nitrogen 4 mg/dL (8-23); Calcium 7.5 mg/dL (8.6-10.3); Carbon Dioxide 23 mEq/L (23-29); Chloride 101 mEq/L (98-107); Globulin 2.6 g/dL (2.4-3.5); Glucose 116 mg/dL (70-105); Osmolality,Calculated 268 (280-300); Sodium 130 mEq/L (136-145); Total Protein 4.8 g/dL (6.4-8.9); eGFR For African Americans > 60 (> 60); eGFR For Non-African Americans > 60 (> 60)
[2020-03-22 09:53] LABS: Bacteria,Urine Few per hpf (None-Few); Bilirubin,Urine Small (Negative); Blood,Urine Moderate (Negative); Clarity,Urine Turbid (Clear); Color,Urine Dark-Orange (Yellow); Glucose,Urine (UA) Normal (Normal); Ketones,Urine Negative (Negative); Leukocyte Esterase,Urine Negative (Negative); Mucus,Urine Moderate per lpf (None-Few); Nitrite,Urine Negative (Negative); PH,Urine 6.5 pH Units (5.0-8.0); Protein,Urine 50 mg/dL (Neg-Trace); RBC,Urine 30-50 per hpf (0-3); Specific Gravity,Urine 1.029 (1.010-1.025); Squamous Epithelial Cell,Urine Few per hpf (None-Few); Urobilinogen,Urine >=8.0 mg/dL (Normal)
[2020-03-22] MEDS: Lactulose Oral Soln 20 GM/30 ML UDC PO SCH (10:15)
[2020-03-22] MEDS: Spironolactone 25 MG TABLET PO SCH (10:16)
[2020-03-22] MEDS: Potassium Chloride Elixir 20 MEQ/15 ML UDC PO SCH ×2 (10:17→14:35)
[2020-03-22] MEDS ORDERED: Lactulose Oral Soln 20 GM/30 ML UDC PO PRN (12:48)
[2020-03-22] MEDS: Melatonin 3 MG TABLET PO SCH (21:33)
[2020-03-23 04:27] LABS: Basophils % 0.3 %; Eosinophils # 0.1 K/mcL (0.0-0.6); Hematocrit 24.1 % (37.5-50.1); Hemoglobin 8.2 g/dL (12.9-16.9); Immature Granulocytes % 0.4 % (0-4); Lymphocytes # 0.9 K/mcL (0.6-4.6); Lymphocytes % 12.8 %; Mean Corpuscular Hemoglobin 36.1 pg (28.0-33.3); Mean Corpuscular Volume 106.2 fL (83.0-100.0); Mean Platelet Volume 9.9 fL (9.4-12.4); Monocytes # 0.6 K/mcL (0.0-1.3); Monocytes % 8.6 %; Neutrophils # 5.5 K/mcL (1.6-8.9); Platelet Count 133 K/mcL (140-400); Red Blood Count 2.27 M/mcL (4.19-5.50); Segmented Neutrophils % 76.9 %; White Blood Count 7.1 K/mcL (4.3-11.1)
[2020-03-23 04:49] LABS: BUN/Creatinine Ratio 8 (6-26); Blood Urea Nitrogen 4 mg/dL (8-23); Calcium 7.4 mg/dL (8.6-10.3); Carbon Dioxide 23 mEq/L (23-29); Chloride 103 mEq/L (98-107); Glucose 93 mg/dL (70-105); Magnesium 1.5 mg/dL (1.6-2.6); Osmolality,Calculated 269 (280-300); Phosphorous 2.3 mg/dL (2.7-4.5); Potassium 3.8 mEq/L (3.5-5.1); Sodium 131 mEq/L (136-145); eGFR For African Americans > 60 (> 60); eGFR For Non-African Americans > 60 (> 60)
[2020-03-23] MEDS: Spironolactone 25 MG TABLET PO SCH (11:13)
[2020-03-23] MEDS: Furosemide 20 MG TABLET PO SCH (14:14)
[2020-03-23] MEDS: Lactulose Oral Soln 20 GM/30 ML UDC PO SCH ×2 (14:14→20:58)
[2020-03-23 19:07] LABS: Adenovirus Not Detected (Not Detect); Bordetella Pertussis Not Detected (Not Detect); Chlamydophila pneumoniae Not Detected (Not Detect); Coronavirus 229E Not Detected (Not Detect); Coronavirus HKU1 Not Detected (Not Detect); Coronavirus NL63 Not Detected (Not Detect); Coronavirus OC43 Not Detected (Not Detect); Human Metapneumovirus Not Detected (Not Detect); Human Rhinovirus/Enterovirus Not Detected (Not Detect); Influenza A Subtype 2009 H1 Not Detected (Not Detect); Influenza B Not Detected (Not Detect); Mycoplasma pneumoniae Not Detected (Not Detect); Parainfluenza Virus 1 Not Detected (Not Detect); Parainfluenza Virus 2 Not Detected (Not Detect); Parainfluenza Virus 3 Not Detected (Not Detect); Parainfluenza Virus 4 Not Detected (Not Detect); Respiratory Syncytial Virus Not Detected (Not Detect); SARS-CoV-2 Not Detected (Not Detect)
[2020-03-23] MEDS: Melatonin 3 MG TABLET PO SCH (20:58)
[2020-03-24 04:58] LABS: Basophils % 0.4 %; Eosinophils # 0.2 K/mcL (0.0-0.6); Hematocrit 26.9 % (37.5-50.1); Immature Granulocytes % 0.4 % (0-4); Lymphocytes % 20.3 %; Mean Corpuscular HGB Conc 33.5 g/dL (31.6-35.5); Mean Corpuscular Hemoglobin 35.3 pg (28.0-33.3); Mean Corpuscular Volume 105.5 fL (83.0-100.0); Mean Platelet Volume 9.4 fL (9.4-12.4); Monocytes # 0.6 K/mcL (0.0-1.3); Monocytes % 11.4 %; Neutrophils # 3.3 K/mcL (1.6-8.9); Platelet Count 114 K/mcL (140-400); Red Blood Count 2.55 M/mcL (4.19-5.50); Red Cell Distribution Width 13.1 % (11.5-14.5); Segmented Neutrophils % 64.5 %; White Blood Count 5.1 K/mcL (4.3-11.1)
[2020-03-24 05:14] LABS: BUN/Creatinine Ratio 12 (6-26); Blood Urea Nitrogen 6 mg/dL (8-23); Calcium 7.4 mg/dL (8.6-10.3); Carbon Dioxide 24 mEq/L (23-29); Chloride 103 mEq/L (98-107); Glucose 87 mg/dL (70-105); Magnesium 1.9 mg/dL (1.6-2.6); Osmolality,Calculated 271 (280-300); Phosphorous 2.7 mg/dL (2.7-4.5); Potassium 3.5 mEq/L (3.5-5.1); Sodium 132 mEq/L (136-145); eGFR For African Americans > 60 (> 60); eGFR For Non-African Americans > 60 (> 60)
[2020-03-24] MEDS ORDERED: Spironolactone 25 MG TABLET PO SCH (09:00)
[2020-03-24] MEDS ORDERED: Lidocaine -MPF 2% 2 ML VIAL ONE (11:01)
[2020-03-24] MEDS ORDERED: *HR* Propofol 200 MG/20 ML VIAL IVP ONE (11:01)
[2020-03-24] MEDS: Lactulose Oral Soln 20 GM/30 ML UDC PO SCH ×2 (14:30→15:35)
[2020-03-24] MEDS: Furosemide 20 MG TABLET PO SCH (14:30)
[2020-03-24 16:56] VITALS: BP 138/73
[2020-03-24] MEDS ORDERED: Pantoprazole 40 MG VIAL IVP SCH (18:00)
[2020-03-24] MEDS: *HR* OxyCODONE Immed Rel 5 MG TABLET PO PRN (19:51)
== END 2020-03-24 19:50 ==
LOC: EMEROOARM 10:29 → 3ANU 10:29 → SUATTDRO 13:28 → 3ANU 14:22
PROVIDERS: ADMIT Internal Medicine; ATTEND Internal Medicine